=== PATIENT | female | born 1950 | race Caucasian/White ===

== ENCOUNTER → 2016-10-02 | Outpatient (REF) | payer MEDICARE, OTHER ==
[~2016-10-02] MED LIST: /WARF5TA; DIGO0.257; NICO21DI4; ZEBETA
[2016-10-02 18:53] LABS: PERCENT SATURATION 21.1 % (13.2-37.4)
== END ==
LOC: M LAB REF 16:27
PROVIDERS: ATTEND Nurse Practitioner Adult Health
DX: G25.81 Restless legs syndrome (principal); I13.0 Hypertensive heart and chronic kidney disease with heart failure and stage 1 through stage 4 chronic kidney disease, or unspecified chronic kidney disease; N18.9 Chronic kidney disease, unspecified

== ENCOUNTER → 2016-12-25 | Outpatient (REF) | payer MEDICARE, OTHER | LOC: M LAB REF 12:52 | PROVIDERS: ATTEND Nurse Practitioner Adult Health | DX: M10.9 Gout, unspecified (principal) ==

== ENCOUNTER → 2017-01-26 | Outpatient (REF) | payer MEDICARE, OTHER | LOC: M LAB REF 15:09 | PROVIDERS: ATTEND Nurse Practitioner Adult Health | DX: M10.9 Gout, unspecified (principal) ==

== ENCOUNTER → 2018-02-22 | Outpatient (CLI) | payer MEDICARE, OTHER | LOC: M WUC 14:03 | DX: I50.9 Heart failure, unspecified (principal); I51.7 Cardiomegaly; R91.8 Other nonspecific abnormal finding of lung field | CPT/HCPCS: 84100 ==

== ENCOUNTER → 2018-02-22 | Outpatient (REF) | payer MEDICARE, OTHER | LOC: M LAB REF 17:19 | DX: I50.9 Heart failure, unspecified (principal) ==

== ENCOUNTER → 2018-03-08 | Outpatient (REF) | payer MEDICARE, OTHER ==
[2018-03-08 12:55] LABS: PHOSPHORUS LEVEL 4.3 MG/DL (2.5-4.9)
== END ==
LOC: M LAB REF 12:00
DX: I50.33 Acute on chronic diastolic (congestive) heart failure (principal); I11.0 Hypertensive heart disease with heart failure; N19 Unspecified kidney failure
CPT/HCPCS: 84100

== ENCOUNTER → 2018-06-29 | Outpatient (REF) | payer MEDICARE, OTHER | LOC: M LAB REF 11:56 | PROVIDERS: ATTEND Nurse Practitioner Adult Health | DX: I50.32 Chronic diastolic (congestive) heart failure (principal); I48.3 Typical atrial flutter ==

== ENCOUNTER → 2018-09-29 | Outpatient (REF) | payer MEDICARE, OTHER ==
[~2018-09-29] MED LIST changes: -/WARF5TA; +COUM1TAB17
== END ==
LOC: M LAB REF 17:26
PROVIDERS: ATTEND Nurse Practitioner Adult Health
DX: I48.3 Typical atrial flutter (principal)

== ENCOUNTER → 2020-10-10 | Outpatient (CLI) | payer MEDICARE, OTHER ==
--- NOTE | 2020-10-10 17:02 | REP ---
INDICATION: POST MENOPAUSAL BLEEDING. COMPARISON: None. TECHNIQUE: Transabdominal and transvaginal scanning performed. FINDINGS: Uterine dimensions are 7.2 x 3.8 x 3.5 cm. Endometrial echo is 16 mm in AP dimension and centrally placed. Multiple subcentimeter cysts are seen throughout the endometrium. The bladder measures 4.6 x 7.1 cm. The ovaries could not be visualized. In the right adnexa a complex cystic structure measures 3.6 x 3.1 x 2.7 cm. No free fluid is seen in the cul-de-sac. IMPRESSION: Thickened heterogeneous endometrium with multiple subcentimeter cystic structures. This may indicate endometrial hyperplasia or neoplasm. Recommend endometrial sampling. In the right adnexa there is a complex cystic structure 3.6 cm in diameter. Recommend further evaluation with MRI of the pelvis with and without contrast. <Electronically signed by Jerry Gonzalez > 10/10/20 [id number]
== END ==
LOC: M RAD 15:48
PROVIDERS: ATTEND Nurse Practitioner Adult Health
DX: N83.201 Unspecified ovarian cyst, right side (principal); N95.0 Postmenopausal bleeding

== ENCOUNTER → 2020-11-05 | Outpatient (REF) | payer MEDICARE, OTHER ==
[~2020-11-05] MED LIST changes: +ALLO100T PO; +ALLO300T2 PO; +ATOR40TA75 PO; +BISO5TAB14 PO; +BUPR300T92 PO; +CALC1CAP31 PO; +CITA10TA7 PO; +FAMO1TAB11 PO; +GABA-1171 PO; +INCR1INH INH; +PRAD75CA5 PO; +PROAAER10 INH; +SYNT175T2 PO; +TRUL10IN PO
== END ==
LOC: M LAB REF 16:48
PROVIDERS: ATTEND Internal Medicine Nephrology
DX: N17.9 Acute kidney failure, unspecified (principal); I12.9 Hypertensive chronic kidney disease with stage 1 through stage 4 chronic kidney disease, or unspecified chronic kidney disease; M1A.30X0 Chronic gout due to renal impairment, unspecified site, without tophus (tophi)

== ENCOUNTER → 2020-11-14 | Outpatient (CLI) | payer MEDICARE, OTHER ==
[~2020-11-14] MED LIST changes: -ALLO100T PO; -ALLO300T2 PO; -ATOR40TA75 PO; -BISO5TAB14 PO; -BUPR300T92 PO; -CALC1CAP31 PO; -CITA10TA7 PO; -FAMO1TAB11 PO; -GABA-1171 PO; -INCR1INH INH; -PRAD75CA5 PO; -PROAAER10 INH; -SYNT175T2 PO; -TRUL10IN PO
--- NOTE | 2020-11-14 10:05 | REP ---
INDICATION: ABN PELVIC US, CYSTIC STRUCTURE RT ADNEXA. COMPARISON: Comparison pelvic sonography October 10, 2020. TECHNIQUE: Axial, sagittal, and coronal imaging planes utilized. T1 and T2 weighted sequences include spin echo, fast spin echo, inversion recovery, diffusion weighted scans. Images are included with and without fat saturation.. FINDINGS: Cortical and medullary bone signal intensity are normal in the visualized pelvis. There is no evidence of pelvic lymphadenopathy. No free cul-de-sac fluid is seen. The uterus measures 7.5 x 3.6 x 4.9 cm in overall dimension. The endometrium is is thickened and distended, measuring up to 2.3 cm.. This corresponds with the thickened endometrium on recent sonography and raises suspicion of endometrial neoplasia or hyperplasia. There is a subserosal fibroid in the right lateral uterus measuring 2.5 x 2.9 x 2.1 cm. No other uterine mass is seen. The left ovary is unremarkable. In the right ovary, there is a unilocular T1 hypointense, T2 hyperintense cyst. This measures 3.3 x 2.9 x 2.7 cm. It has a thin wall without nodularity. Diffusion-weighted scans show no additional finding. IMPRESSION: 1. Thickened dilated endometrium rule out hyperplasia/neoplasia. 2. Subserosal right lateral uterine leiomyoma. 3. Simple appearing right ovarian cyst measuring 3.3 cm in greatest diameter. Follow-up suggested. <Electronically signed by Anthony Rosas > 11/14/20 1001
== END ==
LOC: M RAD 07:41
PROVIDERS: ATTEND Nurse Practitioner Adult Health
DX: R93.89 Abnormal findings on diagnostic imaging of other specified body structures (principal); D25.2 Subserosal leiomyoma of uterus; N83.201 Unspecified ovarian cyst, right side

== ENCOUNTER → 2021-02-15 | Outpatient (CLI) | payer MEDICARE, OTHER ==
[~2021-02-15] MED LIST changes: +ALLO100T PO; +ALLO300T2 PO; +ATOR40TA75 PO; +BISO5TAB14 PO; +BUPR300T92 PO; +CALC1CAP31 PO; +CITA10TA5 PO; +FAMO1TAB11 PO; +GABA-1171 PO; +INCR1INH INH; +PRAD75CA5 PO; +PROAAER10 INH; +SYNT175T2 PO; +TRUL10IN PO
== END ==
LOC: M LABSMTC 11:01
PROVIDERS: ATTEND Anesthesiology
DX: Z01.818 Encounter for other preprocedural examination (principal); Z11.52 Encounter for screening for COVID-19

== ENCOUNTER 2021-02-20 13:14 | Day surgery (SDC) | payer MEDICARE, OTHER ==
[~2021-02-20] VITALS: Ht 167.6 cm; Wt 138.3 kg
[~2021-02-20 13:14] MED LIST changes: +LR 1,000 ML IV ONE
--- OUTSIDE RECORDS SUMMARY | 2021-02-20 13:17 | CCD | Continuity of Care Document ---
Author Author Avani SUE MD Organization Unknown Address [address] [place] [address] Phone [phone] Care Team Providers Care Hardwood Floor Installation Helper Name Role Phone Ashley Cruz AUTM Unavailable Problems Description No Information Available Social History Type Date Description Comments Sex Unknown Tobacco Use Start: Unknown Current Cigarette Smoker 1 Pack Daily ETOH Use Denies alcohol use Recreational Drug Use Denies Drug Use Tobacco Use Start: Unknown Patient is a current smoker, smo kes every day Smoking Status Reviewed: 01/13/21 Patient is a current smoker, smokes every day Exercise Type/Frequency Does not exercise Allergies and adverse reactions Description No Known Drug Allergies Medications Active Medications SIG Qnty Indications Ordering Provide r Date Citalopram Hydrobromide 10mg/5ML S olution 1 by mouth every day Unknown Rocaltrol 0.25mcg Capsules Da yee Unknown Famotidine 20mg Tablets 1 tab by mouth twice a day Unknown Neurontin 100mg Capsules 1 cap by mouth twice a day Unknown Atorvastatin Calcium 40mg Tablets 1 tab by mouth every day Unknown Levothyroxine Sodium 175mcg Capsul es 1 tab by mouth Daily & 1.5 Tabs MWF Unknown Zyloprim 300mg Tablets 1 tab by mouth every day Unknown Bisoprolol Fumarate 5mg Tablets 1 tab by mouth every day Unknown Wellbutrin XL 300mg Tablets ER 24H R 1 by mouth every day Unknown Allopurinol 100mg Tablets 1 tab by mouth every day Unknown Pradaxa 75mg Capsules Unknown Trulicity 0.75mg/0.5 ML Solution Pen-Inject Unknown Immunizations Description No Information Available Vital Signs Date Vital Result Comment 01/13/2021 2:23pm BP Systolic 130 mmHg BP Diastolic 90 mmHg Height 62.25 inches 5'2.25" Weight 310.00 lb BMI (Body Mass Index) 56.2 kg/m2 BSA (Body Surface Area) 2.31 m2 Results Description No Information Available Procedures Date Code Description Status 01/13/2021 62459 Office/Outpatient New Moderate M DM 45-59 Minutes Completed Medical Devices Description No Information Available Encounters Type Date Location Provider Dx Diagnosis Office Visit 01/13/2021 2:15p [facility] directory assistance operator Cynthia Sue MD N9 5.0 Postmenopausal bleeding D39.0 Neoplasm of uncertain behavi or of uterus R93.89 Abnormal findings on dx imag ing of oth body structures Assessments Date Code Description Provider 01/13/2021 N95.0 Postmenopausal bleeding Cnythia Sue MD 01/13/2021 D39.0 Neoplasm of uncertain behavior o f uterus Cynthia Sue MD 01/13/2021 R93.89 Abnormal findings on diagnostic imaging of other specified body structures Cynthia Sue MD Plan of Treatment Future Appointment(s):* 03/05/2021 11:15 am - Cynthia Sue MD at [facility] 411 directory assistance operator * 02/20/2021 9:30 am - Cynthia Sue MD at [facility] Or 01/13/2021 - Cynthia Sue MD* N95.0 Postmenopausal bleeding * 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
--- OUTSIDE RECORDS SUMMARY | 2021-02-20 13:17 | CCD | Continuity of Care Document ---
Author Author Avani Edmonds Organization Unknown Address [address] [facility] [address] [place] [address] Phone [phone] Care Team Providers Care Certified Medical Dosimetrist Name Role Phone Ashley Cruz ANP AUTM [phone] Huber Dillard DPM AUTM [phone] AUTM [phone] Huber Tomlin MD AUTM Unavailable Jay Lr DO AUTM [phone] Susan Newman MD AUTM [phone] Problems Active Problems Provider Date Pure hyperglyceridemia NELSON Edmonds Onset: 12/31/2010 Gout NELSON Edmonds Onset: 03/05/2017 Hypothyroidism NELSON Edmonds Onset: 03/05/2017 Hypertensive heart AND chronic kidney disease with con gestive heart failure NELSON Edmonds Onset: 03/05/2017 Chronic diastolic heart failure NELSON Edmonds Onset: 1 2016 Chronic kidney disease stage 3 NELSON Edmonds Onset: Heart murmur NELSON Edmonds Onset: 03/05/2017 Obstructive sleep apnea syndrome NELSON Edmonds Onset: 03/05/2017 History of atrial flutter NELSON Edmonds Onset: 017 Morbid obesity NELSON Edmonds Onset: 03/05/2017 Tobacco user NELSON Edmonds Onset: 03/05/2017 Social History Type Date Description Comments Sex Unknown Tobacco Use Start: Unknown Patient is a current cigarette smoker, smokes every day 1 pack ETOH Use Never used alcohol Tobacco Use Start: Unknown Patient is a current smoker, smo kes every day Smoke Alarms Yes Smoke Alarms Carbon Monoxide Detector: Yes Allergies and adverse reactions Description No Known Drug Allergies Medications Active Medications SIG Qnty Indications Ordering Provide r Date Trulicity 0.75mg/0.5 ML Solution Pen-Inject 0.75 mg injection weekly [facility] Synthroid 175mcg Tablets Take 1 Tablet Four Days A Week And One And One-Half Tablets On Mondays, Wednesdays And Fridays Weekly 102tabs Ashley Lee [facility] 07/22/2020 Jardiance 25mg Tablets 1 by mouth every day Unknown 01/08/2020 Magnesium Gluconate 500mg Tablets 1 by mouth daily Unknown 11/07/2019 Famotidine 20mg Tablets 1 by mouth twice a day 180tabs [facility] 01/11/2019 Pradaxa 75mg Capsules Take 1 Capsule Twice A Day 180caps [facility] 09/29/2018 Citalopram Hydrobromide 10mg Table ts Take 1 Tablet Daily 90tabs Ashley Lee [facility] 03/01/2018 Atorvastatin Calcium 40mg Tablets 1 by mouth every day 90tabs Ashley Lee [facility] 02/10/2018 [facility]lies [facility] 01/18 Allopurinol 100mg Tablets take 1 tablet daily with 300 mg to equal 400 mg daily 90tabs Ashley Angel, [facility] 12/29/2016 Bupropion Hydrochloride ER (XL) 300mg Tablets ER 24HR Take 1 Tablet Daily 90tabs Ashley Lee [facility] 12/04 Allopurinol 300mg Tablets take 1 tablet daily with 100 mg to take 400 mg daily 90tabs M10.372 Ashley Davis, [facility] 01/21/2016 Gabapentin 100mg Capsules Take 1 Capsule Twice A Day 180caps Ashley Lee [facility] 03/06/2015 Incruse Ellipta 62.5mcg/Inh Aeroso l Use 1 Inhalation Daily 2700units Valerie Martinez, [facility]HEL[facility] 08/23/2014 Proair HFA 108(90Base) mcg/Act Aer osol 2 puffs four times a day for one week then as needed for cough 1units Ashley Lee [facility] 07/31/2014 Bisoprolol Fumarate 5mg Tablets Take 1 Tablet Daily 90tabs Valerie Martinez, CHELSEA 10/27/2009 Calcitriol 0.25mcg Capsules 1 by mouth every day Unknown History Medications Duloxetine HCL 30mg Caps DR Chaudhari 1 by mouth every day 30caps Ashley Lee [facility] 10/01/2020 - Medications Administered in Office Medication SIG Qnty Indications Ordering Provider Date Covid-19 vaccine, Unspecified Inj ection Unknown 06/30/2020 Covid-19 vaccine, Unspecified Inj ection Unknown 06/02/2020 Administration Of Flu Vaccine Inj ection Ashley Lee [facility] 01/11/2019 Administration Of Flu Vaccine Inj ection ZEINAB EdmondsP 01/18/2018 Administration Of Flu Vaccine Inj ection ZEINAB EdmondsP 01/26/2017 Immunization Each Add'l Vacc/To Injection ZEINAB EdmondsP 02/12/2011 Immunizations CPT Code Status Date Vaccine Lot # U-Flu Given 02/09/2020 Influenza,Unspecified 51576 Given 01/11/2019 Influenza Vaccin e Quadrivalent Preser/Antibiotic Free Im Use [id number] 45090 Given 08/01/2018 Shingrix Zoster Vaccine (HZV), Recombinant, Subunit, Adjuvanted 12430 Given 05/21/2018 Shingrix 73043 Given 01/18/2018 Influenza Virus Vaccine, Quadrivalent (Cciiv4), Derived From 8 Given 10/13/2017 Pneumovax 23 [id number] 92100 Given 01/26/2017 Influenza Vaccin e Quadrivalent Preser/Antibiotic Free Im Use [id number] Q2037 Given 01/21/2016 Fluvirin Virus Vaccine 42042 01 81347 Given 03/06/2015 Tetanus/Diptheria(Td)Toxoids Preservative Free [id number] Q2037 Given 02/19/2015 Fluvirin Virus Vaccine 92616 01 Q2037 Given 01/30/2014 Fluvirin Virus Vaccine 80424 21 Q2037 Given 01/25/2013 Fluvirin Virus Vaccine 63671 01 Q2037 Given 02/12/2011 Fluvirin Virus Vaccine 51733 Given 02/12/2011 Zoster Vaccine 33947 Given 12/27/2009 Influenza Virus Vaccine Vital Signs Date Vital Result Comment 10/31/2020 1:24pm BP Systolic 116 mmHg BP Diastolic 72 mmHg Heart Rate 102 /min Height 65 inches 5'5" Weight 306.00 lb O2 % BldC Oximetry 97 % BMI (Body Mass Index) 50.9 kg/m2 10/01/2020 2:07pm BP Systolic 128 mmHg BP Diastolic 72 mmHg Heart Rate 84 /min Height 65 inches 5'5" Weight 312.00 lb O2 % BldC Oximetry 95 % BMI (Body Mass Index) 51.9 kg/m2 Results Test Acquired Date Facility Test Result H/L Range Note Coronavirus 2019 Nasopharygeal 02/15/2021 [facility] [address] [place] [address] [phone] Coronavirus 2019 Nasopharygeal ASSAY INFORMATIO <SEE N OTE> 1 Complete Blood Count 10/31/2020 [facility] Corporate Training Manager: [place] [address] [phone] WBC 5.5 x10*3/UL 4.1 - 10.9 RBC 4.77 x10*6/UL 4.20 - 6.30 Hemoglobin 15.1 g/dL 12.0 - 18.0 Hematocrit 44.0 % 37.0 - 51.0 MCV 92.3 fL 80.0 - 97.0 MCH 31.7 pg 26.0 - 32.0 MCHC 34.3 g/dL 31.0 - 38.0 RDW 14.7 % High 11.6 - 13.7 PLT 143 x10*3/UL 140 - 440 MPV 7.9 FL 7.8 - 11.0 Lymph % 19.6 % 10.0 - 58.5 Mid % 5.3 % 1.7 - 9.3 Neut % 75.1 % 37.0 - 92.0 Lymph # 1.0 x10*3/UL 0.6 - 4.1 Mid # 0.4 x10*3/UL 0.1 - 0.6 Neut # 4.1 x10*3/UL 2.0 - 7.8 Basic Metabolic Panel 10/31/2020 [facility] Corporate Training Manager: [place] [address] [phone] Glucose 93 mg/dL 74 - 99 2 BUN 35 mg/dL High 7 - 18 Creatinine 1.4 mg/dL High 0.6 - 1.3 Sodium 138 mEq/L 136 - 145 Potassium 4.8 mEq/L 3.5 - 5.1 Chloride 106 mEq/L 98 - 107 Carbon Dioxide 27 mEq/L 21 - 32 Calcium 9.2 mg/dL 8.5 - 10.1 GFR 37 mL/min Low >60 GFR 45 mL/min Low >60 3 Pap Ig & HPV W/Rx HPV Eugenie 16/18,45 10/01/2020 [facility] [place] [facility] See Comment: 4 Adeq See Comment: 5 [email or web address] See Comment: 6 Perfor See Comment: 7 Signed See Comment: 8 Comm . Note See Comment: 9 Iglbp See Comment: 10 HPV Aptima Negative Negative 11 Laboratory test finding 10/01/2020 [facility] [place] PDF [id number] SEE IMAGE 1 ASSAY INFORMATION: Real Time RT-PCR NOTE: The COVID-19 assay has been cleared by the U.S. Food and Drug Administration under the Emergency Use Authorization (EUA). [facility] are designated as high complexity laboratories by the Clinical Laboratory Improvement Amendments of 1988(CLIA) and are qualified to perform this test. Not Detected 2 100-125 mg/dL PRE-DIABET ES/FASTING >126 mg/dL DIABETES/FASTING 3 CHRONIC KIDNEY DISEASE STAGI NG PER NKF STAGE I & II GFR >= 60 NORMAL TO MILDLY DECREASED STAGE III GFR 30-59 MODERATELY DECREASED STAGE IV GFR 15-29 SEVERELY DECREASED STAGE V GFR <15 VERY LITTLE GFR LEFT ESRD GFR <15 ON BRAID FOLDER 4 NEGATIVE FOR INTRAEPITHELIAL LESION OR MALIGNANCY. 5 Satisfactory for evaluation. No endocervical component is identified. 6 N95.0 7 Andie Alamo [employer] ogist (ASCP) 8 France Beckford MD, Pa thologist 9 The Pap smear is a screening test designed to aid in the detection of premalignant and malignant conditions of the uterine cervix. It is not a diagnostic procedure and should not be used as the sole means of detecting cervical cancer. Both false-positive and false-negative reports do occur. 10 This liquid based ThinPrep(R ) pap test was screened with the use of an image guided system. 11 This nucleic acid amplificat ion test detects fourteen high-risk HPV types (16,18,31,33,35,39,45,51,52,56,58,59,66,68) without differentiation. Procedures Date Code Description Status 10/31/2020 92535 Office/Outpatient Established Mo d MDM 30-39 Min Completed 10/01/2020 27282 Office/Outpatient Established Mo d MDM 30-39 Min Completed 09/27/2019 [id number] Diabetic Retinal Eye Exam Comple lorna 08/17/2019 [id number] Mammogram Completed 08/10/2017 [id number] Mammogram Completed 02/04/2017 [id number] Diabetic Retinal Eye Exam Comple [facility] 12/24/2016 [id number] Diabetic Foot Exam Completed 05/25/2016 [id number] Mammogram Completed 01/22/2016 [id number] Mammogram Completed 05/23/2015 [id number] Mammogram Completed 04/19/2014 [id number] Mammogram Completed 03/21/2014 [id number] Mammogram Completed 06/28/2012 [id number] Mammogram Completed 06/18/2011 [id number] Mammogram Completed Medical Devices Description No Information Available Encounters Type Date Location Provider Dx Diagnosis Office Visit 10/31/2020 1:20p [facility] Ashley Davis, TAFFY PULLER I13.0 Hyp hrt & chr kdny dis w hrt fail and st g 1-4/unsp chr kdny I50.32 Chronic diastolic (congestiv e) heart failure N18.32 Chronic kidney disease, stag e 3b I48.0 Paroxysmal atrial fibrillati on Z79.01 halfway (current) use of a nticoagulants E11.40 Type 2 diabetes mellitus wit h diabetic neuropathy, unsp E11.65 Type 2 diabetes mellitus wit h hyperglycemia R93.5 Abn findings on dx imaging o f abd regions, inc retroperiton Office Visit 10/01/2020 2:00p [facility] 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 * 03/05/2021 1:20 pm - Nurse #2 at [facility] * 03/05/2021 1:40 pm - NELSON Edmonds at [facility] 10/31/2020 - NELSON Edmonds* I13.0 Hypertensive heart and chronic kidney disease with heart failure and stage 1 through stage 4 chronic kidney disease, or unspecified chronic kidney disease* Comments:* Blood pressure is controlled on current treatment plan. * I50.32 Chronic diastolic (congestive) heart failure* Comments:* Clinically euvolemic Clinically euvolemic * N18.32 Chronic kidney disease, stage 3b* Comments:* BMP obtained, reviewed and is stable with a GFR of 37 and a creatinine 1.4. * I48.0 Paroxysmal atrial fibrillation* Comments:* Clinically sinus rhythm. 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 CBC obtained, reviewed and is acceptable * E11.40 Type 2 diabetes mellitus with diabetic neuropathy, unspecified * E11.65 Type 2 diabetes mellitus with hyperglycemia* Comments:* Diet and exercise discussed. * R93.5 Abnormal findings on diagnostic imaging of other abdominal regions, including retroperitoneum* Comments:* Abnormal pelvic ultrasound. The recommendation was for an MRI due to the right adnexa complex cyst measuring 3.6 cm. Endometrium was thickened. I have referred her to Dr. Mendes and she has an appointment in January. Radiology recommended an MRI of her pelvis with and without contrast. In light of her renal function, will obtain it just without contrast * All * New Medication:* Trulicity 0.75 mg/0.5ML - 0.75 mg injection weekly Functional Status Description No Information Available Mental Status Description No Information Available Referrals Refer to Reason for Referral Status Appt Date Sujata Booker NP Referral DX: Growth on her face and roberth e on her back Created [facility] [place], [place] [phone] Cynthia Mendes MD CONSULT FOR POST MENOPAUSAL BLEEDING [facility] [address], [place] [address] [phone]
--- OUTSIDE RECORDS SUMMARY | 2021-02-20 13:17 | CCD | Continuity of Care Document ---
Author Author Avani PAIGE DO Organization Unknown Address [address] [facility] [address] [place] [address] Phone [phone] Care Team Providers Care Art Critic Name Role Phone Ashley Cruz ANP AUTM [phone] Huber Dillard DPM AUTM [phone] AUTM [phone] Huber Tomlin MD AUTM Unavailable Jay Lr DO AUTM [phone] Susan Newman MD AUTM [phone] Problems Active Problems Provider Date Pure hyperglyceridemia [...] Pen-Inject 0.75 mg injection weekly 2ml [facility] Synthroid 175mcg Tablets Take 1 Tablet Four Days A Week And One And One-Half Tablets On Mondays, Wednesdays And Fridays Weekly 102tabs Ashley Lee [facility] 07/22/2020 Jardiance 25mg Tablets 1 by mouth every day Unknown 01/08/2020 Magnesium Gluconate 500mg Tablets 1 by mouth daily Unknown 11/07/2019 Famotidine 20mg Tablets 1 by mouth twice a day 180tabs [facility] 01/11/2019 Pradaxa 75mg Capsules Take 1 Capsule Twice A Day 180caps [facility] 09/29/2018 Citalopram Hydrobromide 10mg Table ts Take 1 Tablet Daily 90tabs Ashley Lee [facility] 03/01/2018 Atorvastatin Calcium 40mg Tablets 1 by mouth every day 90tabs Ashley Lee [facility] 02/10/[address] [facility] [facility] 01/18 Allopurinol 100mg Tablets take 1 tablet daily with 300 mg to equal 400 mg daily 90tabs Ashley Angel, [facility] 12/29/2016 Bupropion Hydrochloride ER (XL) 300mg Tablets ER 24HR Take 1 Tablet Daily 90tabs Ashley Lee [facility] 12/04 Allopurinol 300mg Tablets take 1 tablet daily with 100 mg to take 400 mg daily 90tabs M10.372 Ashley Davis, [facility] 01/21/2016 Gabapentin 100mg Capsules Take 1 Capsule Twice A Day 180caps Ashley Lee [facility] 03/06/2015 Incruse Ellipta 62.5mcg/Inh Aeroso l Use 1 Inhalation Daily 2700units Valerie Martinez, [place] 08/23/2014 Proair HFA 108(90Base) mcg/Act Aer osol 2 puffs four times a day for one week then as needed for cough 1units Ashley Lee [facility] 07/31/2014 Bisoprolol Fumarate 5mg Tablets Take 1 Tablet Daily 90tabs Valerie Martinez, CHELSEA 10/27/2009 Calcitriol 0.25mcg Capsules 1 by mouth every day Unknown History Medications Duloxetine HCL 30mg Caps DR Chaudhari 1 by mouth every day 30caps Ashley Lee, [facility] 10/01/2020 - Medications Administered in Office Medication SIG Qnty Indications Ordering Provider Date Covid-19 vaccine, Unspecified Inj ection Unknown 06/30/2020 Covid-19 vaccine, Unspecified Inj ection Unknown 06/02/2020 Administration Of Flu Vaccine Inj ection Ashley Lee [facility] 01/11/2019 Administration Of Flu Vaccine Inj ection ZEINAB EdmondsP 01/18/2018 Administration Of Flu Vaccine Inj ection Ashley Lee [facility] 01/26/2017 Immunization Each Add'l Vacc/To Injection Ashley Lee [facility] 02/12/2011 Immunizations CPT Code Status Date Vaccine Lot # [id number] Given 02/18/2021 Influenza Virus Vaccine, Quadrivalent, Slit Virus, Im Use [id number] U-Flu Given 02/09/2020 Influenza,Unspecified 73875 Given 01/11/2019 Influenza Vaccin e Quadrivalent Preser/Antibiotic Free Im Use [id number] 36154 Given 08/01/2018 Shingrix Zoster Vaccine (HZV), Recombinant, Subunit, Adjuvanted 43631 Given 05/21/2018 Shingrix 59077 Given 01/18/2018 Influenza Virus Vaccine, Quadrivalent (Cciiv4), Derived From 3 Given 10/13/2017 Pneumovax 23 [id number] 29231 Given 01/26/2017 Influenza Vaccin e Quadrivalent Preser/Antibiotic Free Im Use [id number] Q2037 Given 01/21/2016 Fluvirin Virus Vaccine 06657 01 49866 Given 03/06/2015 Tetanus/Diptheria(Td)Toxoids Preservative Free [id number] Q2037 Given 02/19/2015 Fluvirin Virus Vaccine 65845 01 Q2037 Given 01/30/2014 Fluvirin Virus Vaccine 33350 21 Q2037 Given 01/25/2013 Fluvirin Virus Vaccine 41163 01 Q2037 Given 02/12/2011 Fluvirin Virus Vaccine 56636 Given 02/12/2011 Zoster Vaccine 69429 Given 12/27/2009 Influenza Virus Vaccine Vital Signs Date Vital Result Comment 02/18/2021 10:02am BP Systolic 126 mmHg BP Diastolic 82 mmHg Heart Rate 98 /min Height 65 inches 5'5" Weight 315.00 lb O2 % BldC Oximetry 95 % BMI (Body Mass Index) 52.4 kg/m2 10/31/2020 1:24pm BP Systolic 116 mmHg BP Diastolic 72 mmHg Heart Rate 102 /min Height 65 inches 5'5" Weight 306.00 lb O2 % BldC Oximetry 97 % BMI (Body Mass Index) 50.9 kg/m2 Results Test Acquired Date Facility Test Result H/L Range Note Complete Blood Count 02/18/2021 [facility] Duplicating Machine Mechanic: [place] [address] [phone] WBC 6.0 x10*3/UL 4.1 - 10.9 RBC 4.57 x10*6/UL 4.20 - 6.30 Hemoglobin 14.0 g/dL 12.0 - 18.0 Hematocrit 42.5 % 37.0 - 51.0 MCV 92.8 fL 80.0 - 97.0 MCH 30.7 pg 26.0 - 32.0 MCHC 33.1 g/dL 31.0 - 38.0 RDW 13.9 % High 11.6 - 13.7 PLT 166 x10*3/UL 140 - 440 MPV 7.9 FL 7.8 - 11.0 Lymph % 14.7 % 10.0 - 58.5 Mid % 4.8 % 1.7 - 9.3 Neut % 80.5 % 37.0 - 92.0 Lymph # 0.8 x10*3/UL 0.6 - 4.1 Mid # 0.4 x10*3/UL 0.1 - 0.6 Neut # 4.8 x10*3/UL 2.0 - 7.8 A1c 02/18/2021 [facility] Duplicating Machine Mechanic: [place] [address] [phone] Hba1c 5.6 % <5.7 1 Est Avg Glucose 114 mg/dL High 60 - 110 Basic Metabolic Panel 02/18/2021 [facility] Duplicating Machine Mechanic: [place] [address] [phone] Glucose 99 mg/dL 74 - 99 2 BUN 30 mg/dL High 7 - 18 Creatinine 1.3 mg/dL 0.6 - 1.3 Sodium 145 mEq/L 136 - 145 Potassium 4.5 mEq/L 3.5 - 5.1 Chloride 107 mEq/L 98 - 107 Carbon Dioxide 27 mEq/L 21 - 32 Calcium 9.3 mg/dL 8.5 - 10.1 GFR 41 mL/min Low >60 GFR 49 mL/min Low >60 3 Microalbumin/Creatinine Urine 02/18/2021 [facility] Duplicating Machine Mechanic: [place] [address] [phone] Microalbumin Urine 567.1 mg/L High 1.3 - 20.0 Urine Creatinine 372.9 mg/dL High 30.0 - 125.0 Microalb/Creat Ratio 152.1 ug/mg High 0.0 - 30.0 Coronavirus 2019 Nasopharygeal 02/15/2021 [place] [id number] [phone] Coronavirus 2019 Nasopharygeal ASSAY INFORMATIO <SEE N OTE> 4 Complete Blood Count 10/31/2020 [facility] Duplicating Machine Mechanic: [place] [address] [phone] WBC 5.5 x10*3/UL 4.1 - 10.9 RBC [...] 2.0 - 7.8 Basic Metabolic Panel 10/31/2020 [facility] Duplicating Machine Mechanic: [place] [address] [phone] Glucose 93 mg/dL 74 - 99 5 BUN 35 mg/dL High 7 - 18 Creatinine 1.4 mg/dL High 0.6 - 1.3 Sodium 138 mEq/L 136 - 145 Potassium 4.8 mEq/L 3.5 - 5.1 Chloride 106 mEq/L 98 - 107 Carbon Dioxide 27 mEq/L 21 - 32 Calcium 9.2 mg/dL 8.5 - 10.1 GFR 37 mL/min Low >60 GFR 45 mL/min Low >60 6 Pap Ig & HPV W/Rx HPV Eugenie 16/18,45 10/01/2020 [facility] [place] Diagn See Comment: 7 Adeq See Comment: 8 [email or web address] See Comment: 9 Perfor See Comment: 10 Signed See Comment: 11 Comm . Note See Comment: 12 Iglbp See Comment: 13 HPV Aptima Negative Negative 14 Laboratory test finding 10/01/2020 [facility] [place] PDF [id number] SEE IMAGE 1 Lab Result Notes: Pre-Diabetes 5.7 - 6.4 % Diabetes = or > 6.5% 2 100-125 mg/dL PRE-DIABET ES/FASTING >126 mg/dL DIABETES/FASTING 3 CHRONIC KIDNEY DISEASE STAGI NG PER NKF STAGE I & II GFR >= 60 NORMAL TO MILDLY DECREASED STAGE III GFR 30-59 MODERATELY DECREASED STAGE IV GFR 15-29 SEVERELY DECREASED STAGE V GFR <15 VERY LITTLE GFR LEFT ESRD GFR <15 ON CLINICAL LABORATORY AIDE 4 ASSAY INFORMATION: Real Time RT-PCR NOTE: The COVID-19 assay has been cleared by the U.S. Food and Drug Administration under the Emergency Use Authorization (EUA). [facility] are designated as high complexity laboratories by the Clinical Laboratory Improvement Amendments of 1988(CLIA) and are qualified to perform this test. Not Detected 5 100-125 mg/dL PRE-DIABET ES/FASTING >126 mg/dL DIABETES/FASTING 6 CHRONIC KIDNEY DISEASE STAGI NG PER NKF STAGE I & II GFR >= 60 NORMAL TO MILDLY DECREASED STAGE III GFR 30-59 MODERATELY DECREASED STAGE IV GFR 15-29 SEVERELY DECREASED STAGE V GFR <15 VERY LITTLE GFR LEFT ESRD GFR <15 ON CLINICAL LABORATORY AIDE 7 NEGATIVE FOR INTRAEPITHELIAL LESION OR MALIGNANCY. 8 Satisfactory for evaluation. No endocervical component is identified. 9 N95.0 10 Andie Alamo [employer]otechn[employer] ogist (ASCP) 11 France Beckford MD, Pa thologist 12 The Pap smear is a screening test designed to aid in the detection of premalignant and malignant conditions of the uterine cervix. It is not a diagnostic procedure and should not be used as the sole means of detecting cervical cancer. Both false-positive and false-negative reports do occur. 13 This liquid based ThinPrep(R ) pap test was screened with the use of an image guided system. 14 This nucleic acid amplificat ion test detects fourteen high-risk HPV types (16,18,31,33,35,39,45,51,52,56,58,59,66,68) without differentiation. Procedures Date Code Description Status 10/31/2020 13071 Office/Outpatient Established Mo d MDM 30-39 Min Completed 10/01/2020 69405 Office/Outpatient Established Mo d MDM 30-39 Min Completed 09/27/2019 [id number] Diabetic Retinal Eye Exam Comple lorna 08/17/2019 [id number] Mammogram Completed 08/10/2017 [id number] Mammogram Completed 02/04/2017 [id number] Diabetic Retinal Eye Exam Comple [facility] 12/24/2016 [id number] Diabetic Foot Exam Completed 05/25/2016 [id number] Mammogram Completed 01/22/2016 [id number] Mammogram Completed 05/23/2015 [id number] Mammogram Completed 04/19/2014 [id number] Mammogram Completed 03/21/2014 [id number] Mammogram Completed 06/28/2012 [id number] Mammogram Completed 06/18/2011 [id number] Mammogram Completed Medical Devices Description No Information Available Encounters Type Date Location Provider Dx Diagnosis Office Visit 10/31/2020 1:20p [facility] 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 sAhley Maya ne, [facility] N95.0 Postmenopausal bleeding Assessments Date Code Description Provider 02/18/2021 Z01.810 Encounter for preprocedural card iovascular examination Jeronimo Paige, DO 02/18/2021 N95.0 Postmenopausal bleeding Jairo Paige, DO 02/18/2021 I13.0 Hypertensive heart a nd chronic kidney disease with heart failure and stage 1 through stage 4 chronic kidney disease, or unspecified chronic kidney disease Jeronimo Paige, DO 02/18/2021 I50.32 Chronic diastolic (congestive) h eart failure Jeronimo Paige, DO 02/18/2021 N18.32 Chronic kidney disease, stage 3b Jeronimo Paige, DO 02/18/2021 I48.0 Paroxysmal atrial fibrillation C hristargenis Paige, DO 02/18/2021 E11.65 Type 2 diabetes mellitus with hy perglycemia Jeronimo Paige, DO 02/18/2021 E03.9 Hypothyroidism, unspecified Chri simona Paige, DO 02/18/2021 G47.33 Obstructive sleep apnea (adult) (pediatric) Jeronimo Paige, DO 02/18/2021 J44.9 Chronic obstructive pulmonary di sease, unspecified Jeronimo Paige, DO 10/31/2020 I13.0 Hypertensive heart a nd chronic kidney disease with heart failure and stage 1 through stage 4 chronic kidney disease, or unspecified chronic kidney disease Ashley Lee [facility] 10/31/2020 I50.32 Chronic diastolic (congestive) h eart failure Ashley Lee, [facility] 10/31/2020 N18.32 Chronic kidney disease, stage 3b Ashley Lee [facility] 10/31/2020 I48.0 Paroxysmal atrial fibrillation A roshan Lee, [facility] 10/31/2020 Z79.01 moth exterminator (current) use of antic oagulants NELSON Edmonds 10/31/2020 E11.40 Type 2 diabetes arpita itus with diabetic neuropathy, unspecified NELSON Edmonds 10/31/2020 E11.65 Type 2 diabetes mellitus with hy perglycemia NELSON Edmonds 10/31/2020 R93.5 Abnormal findings on diagnostic imaging of other abdominal regions, including retroperitoneum NELSON Edmonds 10/01/2020 N95.0 Postmenopausal bleeding NELSON Perales Plan of Treatment Future Appointment(s):* 03/05/2021 1:20 pm - Nurse #2 at [facility] * 03/05/2021 1:40 pm - NELSON Edmonds at [facility] 02/18/2021 - Jeronimo Paige DO* Z01.810 Encounter for preprocedural cardiovascular examination * N95.0 Postmenopausal bleeding * I13.0 Hypertensive heart and chronic kidney disease with heart failure and stage 1 through stage 4 chronic kidney disease, or unspecified chronic kidney disease* Comments:* Well controlled on current regimen. Based on todays blood work she should be started on ACEi/ARB for diabetic nephropathy, and this will need to be considered in follow up after surgery. * I50.32 Chronic diastolic (congestive) heart failure * N18.32 Chronic kidney disease, stage 3b * I48.0 Paroxysmal atrial fibrillation* Comments:* Rate controlled, on DOAC with periop plan of DOAC as above. * E11.65 Type 2 diabetes mellitus with hyperglycemia* Comments:* Well controlled on current regimen. * E03.9 Hypothyroidism, unspecified * G47.33 Obstructive sleep apnea (adult) (pediatric)* Comments:* She will let us know what CPAP supplies she needs. * J44.9 Chronic obstructive pulmonary disease, unspecified* Comments:* Consider repeating PFTs in the future, she is not taking inhalers consistently. Functional Status Description No Information Available Mental Status Description No Information Available Referrals Refer to Reason for Referral Status Appt Date Sujata Booker NP Referral DX: Growth on her face and roberth e on her back Created [facility] [phone] Cynthia Mendes MD CONSULT FOR POST MENOPAUSAL BLEEDING Create d [facility] [address] [place] [address] [phone]
--- OUTSIDE RECORDS SUMMARY | 2021-02-20 13:17 | CCD | Continuity of Care Document ---
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
--- OUTSIDE RECORDS SUMMARY | 2021-02-20 13:17 | CCD | Continuity of Care Document ---
Author Author Avani SUE MD Organization Unknown Address [address] [place] [address] Phone [phone] Care Team Providers Care Advertising Account Manager Name Role Phone Ashley Cruz AUTM Unavailable [...] Available Procedures Date Code Description Status 01/13/2021 91390 Office/Outpatient New Moderate M DM 45-59 Minutes Completed Medical Devices Description No Information Available Encounters Type Date Location Provider Dx Diagnosis Office Visit 01/13/2021 2:15p [facility] [employer] consultant Cynthia Sue MD N9 5.0 Postmenopausal bleeding [...] 11:15 am - Cynthia Sue MD at [facility] [employer] pl[employer] consultant * 02/20/2021 9:30 am - Cynthia Sue MD at [facility] [place] 01/13/2021 - Cynthia Sue MD* N95.0 Postmenopausal bleeding * 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
--- OUTSIDE RECORDS SUMMARY | 2021-02-20 13:17 | CCD ---
Continuity of Care Document (CCD) Created on: 02/18/2021 Joshuamynor Avani Melody External Reference #: [id number] : [id number] Sex: Female Author Author Avani PAIGE DO Organization Unknown Address [address] [facility] [address] [place] [address] Phone [phone] Care Team Providers Care Director Of Spa And Guest Experience Name Role Phone Ashley Cruz ANP AUTM [phone] Huber Dillard DPM AUTM [phone] AUTM [phone] Huber Tomlin MD AUTM Unavailable Jay Lr DO AUTM [phone] Susan Newman MD AUTM [phone] Problems Active Problems Provider Date Pure hyperglyceridemia [...] Pen-Inject 0.75 mg injection weekly 2ml [facility] Synthroid 175mcg Tablets Take 1 Tablet Four Days A Week And One And One-Half Tablets On Mondays, Wednesdays And Fridays Weekly 102tabs Ashley Lee [facility] 07/22/2020 Jardiance 25mg Tablets 1 by mouth every day Unknown 01/08/2020 Magnesium Gluconate 500mg Tablets 1 by mouth daily Unknown 11/07/2019 Famotidine 20mg Tablets 1 by mouth twice a day 180tabs [facility] 01/11/2019 Pradaxa 75mg Capsules Take 1 Capsule Twice A Day 180caps [facility] 09/29/2018 Citalopram Hydrobromide 10mg Table ts Take 1 Tablet Daily 90tabs Ashley Lee [facility] 03/01/2018 Atorvastatin Calcium 40mg Tablets 1 by mouth every day 90tabs Ashley Lee [facility] 02/10/2018 Cpap Supplies [facility] 01/18 Allopurinol 100mg Tablets take 1 tablet daily with 300 mg to equal 400 mg daily 90tabs Ashley Angel, [facility] 12/29/2016 Bupropion Hydrochloride ER (XL) 300mg Tablets ER 24HR Take 1 Tablet Daily 90tabs Ashley Lee [facility] 12/04 Allopurinol 300mg Tablets take 1 tablet daily with 100 mg to take 400 mg daily 90tabs M10.372 Ashley Davis, [facility] 01/21/2016 Gabapentin 100mg Capsules Take 1 Capsule Twice A Day 180caps Ashley Lee [facility] 03/06/2015 Incruse Ellipta 62.5mcg/Inh Aeroso l Use 1 Inhalation Daily 2700units Valerie Martinez, [facility] 08/23/2014 Proair HFA 108(90Base) mcg/Act Aer osol 2 puffs four times a day for one week then as needed for cough 1units Ashley Lee [facility] 07/31/2014 Bisoprolol Fumarate 5mg Tablets Take 1 Tablet Daily 90tabs Valerie Martinez, [facility]HELSEA 10/27/2009 Calcitriol 0.25mcg Capsules 1 by mouth every day Unknown History Medications Duloxetine HCL 30mg Caps DR Chaudhari 1 by mouth every day 30caps Ashley Lee, [facility] 10/01/2020 - Medications Administered in Office Medication SIG Qnty Indications Ordering Provider Date Covid-19 vaccine, Unspecified Inj ection Unknown 06/30/2020 Covid-19 vaccine, Unspecified Inj ection Unknown 06/02/2020 Administration Of Flu Vaccine Inj ection Ashley Lee [facility] 01/11/2019 Administration Of Flu Vaccine Inj ection ZEINAB EdmondsP 01/18/2018 Administration Of Flu Vaccine Inj ection Ashley Lee [facility] 01/26/2017 Immunization Each Add'l Vacc/To Injection Ashley Lee [facility] 02/12/2011 Immunizations CPT Code Status Date Vaccine Lot # [id number] Given 02/18/2021 Influenza Virus Vaccine, Quadrivalent, Slit Virus, Im Use [id number] U-[id number] Given 02/09/2020 Influenza,Unspecified 32478 Given 01/11/2019 Influenza Vaccin e Quadrivalent Preser/Antibiotic Free Im Use [id number] 95905 Given 08/01/2018 Shingrix Zoster Vaccine (HZV), Recombinant, Subunit, Adjuvanted 07108 Given 05/21/2018 Shingrix 56265 Given 01/18/2018 Influenza Virus Vaccine, Quadrivalent (Cciiv4), Derived From 6 Given 10/13/2017 Pneumovax 23 [id number] Given 01/26/2017 Influenza Vaccin e Quadrivalent Preser/Antibiotic Free Im Use [id number] Q2037 Given 01/21/2016 Fluvirin Virus Vaccine 11299 01 23491 Given 03/06/2015 Tetanus/Diptheria(Td)Toxoids Preservative Free [id number] Q2037 Given 02/19/2015 Fluvirin Virus Vaccine 53211 01 Q2037 Given 01/30/2014 Fluvirin Virus Vaccine 82668 21 Q2037 Given 01/25/2013 Fluvirin Virus Vaccine 53575 01 Q2037 Given 02/12/2011 Fluvirin Virus Vaccine 73945 Given 02/12/2011 Zoster Vaccine 26852 Given 12/27/2009 Influenza Virus Vaccine Vital Signs [...] Date Facility Test Result H/L Range Note Laboratory test finding 02/18/2021 [place] [facility] Grower: Dr Jay [address]ige [place], [place] [address] [phone] A1c <pending> Coronavirus 2019 Nasopharygeal 02/15/[address] [address] [phone] Coronavirus 2019 Nasopharygeal ASSAY INFORMATIO <SEE N OTE> 1 Complete Blood Count 10/31/2020 [facility]er: [place] [address] [phone] WBC 5.5 x10*3/UL 4.1 - 10.9 RBC [...] 2.0 - 7.8 Basic Metabolic Panel 10/31/2020 [facility]: Dr Jay Paige [place], [place] [id number] [phone] Glucose 93 mg/dL 74 - 99 2 [...] Laboratory test finding 10/01/2020 [facility] [place] PDF [id number] SEE IMAGE 1 ASSAY INFORMATION: Real Time RT-PCR NOTE: The COVID-19 assay has been cleared by the U.S. Food and Drug Administration under the Emergency Use Authorization (EUA). [facility] are designated as high complexity laboratories by [...] LITTLE GFR LEFT ESRD GFR <15 ON REGRINDER OPERATOR 4 NEGATIVE FOR INTRAEPITHELIAL LESION OR MALIGNANCY. [...] differentiation. Procedures Date Code Description Status 10/31/2020 26743 Office/Outpatient Established Mo d MDM 30-39 Min Completed 10/01/2020 66116 Office/Outpatient Established Mo d MDM 30-39 Min Completed 09/27/2019 276467941 Diabetic Retinal Eye Exam Comple lorna 08/17/2019 [id number] Mammogram Completed 08/10/2017 [id number] Mammogram Completed 02/04/2017 [id number] Diabetic Retinal Eye Exam Comple lorna 12/24/2016 [id number] Diabetic Foot Exam Completed 05/25/2016 [id number] Mammogram Completed 01/22/2016 [id number] Mammogram Completed 05/23/2015 [id number] Mammogram Completed 04/19/2014 [id number] Mammogram Completed 03/21/2014 [id number] Mammogram Completed 06/28/2012 [id number] Mammogram Completed 06/18/2011 [id number] Mammogram Completed Medical Devices Description No Information Available Encounters Type Date Location Provider Dx Diagnosis Office Visit 10/31/2020 1:20p [facility] Ashley Maya ne, HOURLY SIGN LANGUAGE INTERPRETER I13.0 Hyp hrt & chr kdny dis w hrt fail and st g 1-4/unsp chr kdny I50.32 Chronic diastolic (congestiv e) heart failure N18.32 Chronic kidney disease, stag e 3b I48.0 Paroxysmal atrial fibrillati on Z79.01 correction (current) use of a nticoagulants E11.40 Type 2 diabetes mellitus wit h diabetic neuropathy, unsp E11.65 Type 2 diabetes mellitus wit h hyperglycemia R93.5 Abn findings on dx imaging o f abd regions, inc retroperiton Office Visit 10/01/2020 2:00p [facility] Aslhey Maya ne, HOURLY SIGN LANGUAGE INTERPRETER N95.0 Postmenopausal bleeding Assessments Date Code Description Provider 02/18/2021 Z01.810 Encounter for preprocedural card iovascular examination Jeronimo Paige, DO 02/18/2021 N95.0 Postmenopausal bleeding Jairo Keylogg, DO 02/18/2021 I13.0 Hypertensive heart a nd chronic kidney disease with heart failure and stage 1 through stage 4 chronic kidney disease, or unspecified chronic kidney disease Jeronimo Keylogg, DO 02/18/2021 I50.32 Chronic diastolic (congestive) h eart failure Ishargenis Keylogg, DO 02/18/2021 N18.32 Chronic kidney disease, stage 3b Jeronimo Keylogg, DO 02/18/2021 I48.0 Paroxysmal atrial fibrillation C hrjcarlos Keylogg, DO 02/18/2021 E11.65 Type 2 diabetes mellitus with hy perglycemia Ishargenis Jalyn, DO 02/18/2021 E03.9 Hypothyroidism, unspecified Chri simona Jalyn, DO 02/18/2021 G47.33 Obstructive sleep apnea (adult) (pediatric) Jeronimo Paige, DO 02/18/2021 J44.9 Chronic obstructive pulmonary di sease, unspecified Jeronimo Paige, DO 10/31/2020 I13.0 Hypertensive heart a nd chronic kidney disease with heart failure and stage 1 through stage 4 chronic kidney disease, or unspecified chronic kidney disease Ashley Lee [facility] 10/31/2020 I50.32 Chronic diastolic (congestive) h eart failure Ashley Lee [facility] 10/31/2020 N18.32 Chronic kidney disease, stage 3b ZEINAB [place]sP 10/31/2020 I48.0 Paroxysmal atrial fibrillation A roshan Lee [facility] 10/31/2020 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 * 03/05/2021 1:40 pm - NELSON Edmonds at [facility] 02/18/2021 - Jeronimo Paige DO* Z01.810 Encounter for preprocedural cardiovascular examination * N95.0 Postmenopausal bleeding * I13.0 Hypertensive heart and chronic kidney disease with heart failure and stage 1 through stage 4 chronic kidney disease, or unspecified chronic kidney disease * I50.32 Chronic diastolic (congestive) heart failure * N18.32 Chronic kidney disease, stage 3b * I48.0 Paroxysmal atrial fibrillation * E11.65 Type 2 diabetes mellitus with hyperglycemia * E03.9 Hypothyroidism, unspecified * G47.33 Obstructive sleep apnea (adult) (pediatric) * J44.9 Chronic obstructive pulmonary disease, unspecified Functional Status Description No Information Available Mental Status Description No Information Available Referrals Refer to Reason for Referral Status Appt Date Sujata Booker NP Referral DX: Growth on her face and roberth e on her back Created [facility] [place], [place] [phone] Cynthia Mendes MD CONSULT FOR POST MENOPAUSAL BLEEDING Create [facility] [address] [place], [place] [address] [phone]
--- OUTSIDE RECORDS SUMMARY | 2021-02-20 13:17 | CCD | Continuity of Care Document ---
Author Author Avani SUE MD Organization Unknown Address [address] [place] [address] Phone [phone] Care Team Providers Care Burglar Alarm Mechanic Name Role Phone Ashley Cruz AUTM Unavailable [...] Available Procedures Date Code Description Status 01/13/2021 35868 Office/Outpatient New Moderate M DM 45-59 Minutes Completed Medical Devices Description No Information Available Encounters Type Date Location Provider Dx Diagnosis Office Visit 01/13/2021 2:15p [facility] store lead Cynthia Sue MD N9 5.0 Postmenopausal bleeding [...] 11:15 am - Cynthia Sue MD at [facility] store lead * 02/20/2021 9:30 am - Cynthia Sue MD at [facility] 01/13/2021 - Cynthia Sue MD* N95.0 Postmenopausal bleeding * 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
--- OUTSIDE RECORDS SUMMARY | 2021-02-20 13:18 | CCD ---
Author Author [facility] Organization [facility] Address Unknown Phone Unavailable Care Team Providers Care Finisher Brush Name Role Phone LePine, M Ashley PRESS SETUP OPERATOR Unavailable Unavailable LePine, M Ashley PRESS SETUP OPERATOR Unavailable Unavailable LePine, M Ashley PRESS SETUP OPERATOR Unavailable Unavailable LePine, M Ashley PRESS SETUP OPERATOR Unavailable Unavailable LePine, M Ashley PRESS SETUP OPERATOR Unavailable Unavailable LePine, M Ashley PRESS SETUP OPERATOR Unavailable Unavailable LePine, M Ashley PRESS SETUP OPERATOR Unavailable Unavailable LePine, M Ashley PRESS SETUP OPERATOR Unavailable Unavailable LePine, M Ashley PRESS SETUP OPERATOR Unavailable Unavailable LePine, M Ashley PRESS SETUP OPERATOR Unavailable Unavailable LePine, M Ashley PRESS SETUP OPERATOR Unavailable Unavailable LePine, M Ashley PRESS SETUP OPERATOR Unavailable Unavailable LePine, M Ashley PRESS SETUP OPERATOR Unavailable Unavailable LePine, M Ashley PRESS SETUP OPERATOR Unavailable Unavailable LePine, M Ashley PRESS SETUP OPERATOR Unavailable Unavailable LePine, M Ashley PRESS SETUP OPERATOR Unavailable Unavailable LePine, M Ashley PRESS SETUP OPERATOR Unavailable Unavailable LePine, M Ashley PRESS SETUP OPERATOR Unavailable Unavailable LePine, M Ashley PRESS SETUP OPERATOR Unavailable Unavailable LePine, M Ashley PRESS SETUP OPERATOR Unavailable Unavailable LePine, M Ashley PRESS SETUP OPERATOR Unavailable Unavailable LePine, M Ashley PRESS SETUP OPERATOR Unavailable Unavailable LePine, M Ashley PRESS SETUP OPERATOR Unavailable Unavailable LePine, M Ashley PRESS SETUP OPERATOR Unavailable Unavailable LePine, M Ashley PRESS SETUP OPERATOR Unavailable Unavailable LePine, M Ashley PRESS SETUP OPERATOR Unavailable Unavailable LePine, M Ashley PRESS SETUP OPERATOR Unavailable Unavailable LePine, M Ashley PRESS SETUP OPERATOR Unavailable Unavailable LePine, M Ashley PRESS SETUP OPERATOR Unavailable Unavailable LePine, M Ashley PRESS SETUP OPERATOR Unavailable Unavailable LePine, M Ashley PRESS SETUP OPERATOR Unavailable Unavailable LePine, M Ashley PRESS SETUP OPERATOR Unavailable Unavailable LePine, M Ashley PRESS SETUP OPERATOR Unavailable Unavailable LePine, M Ashley PRESS SETUP OPERATOR Unavailable Unavailable LePine, M Ashley PRESS SETUP OPERATOR Unavailable Unavailable LePine, M Ashley PRESS SETUP OPERATOR Unavailable Unavailable LePine, M Ashley PRESS SETUP OPERATOR Unavailable Unavailable LePine, M Ashley PRESS SETUP OPERATOR Unavailable Unavailable LePine, M Ashley PRESS SETUP OPERATOR Unavailable Unavailable LePine, M Ashley PRESS SETUP OPERATOR Unavailable Unavailable LePine, M Ashley PRESS SETUP OPERATOR Unavailable Unavailable LePine, M Ashley PRESS SETUP OPERATOR Unavailable Unavailable LePine, M Ashley PRESS SETUP OPERATOR Unavailable Unavailable LePine, M Ashley PRESS SETUP OPERATOR Unavailable Unavailable LePine, M Ashley PRESS SETUP OPERATOR Unavailable Unavailable LePine, M Ashley PRESS SETUP OPERATOR Unavailable Unavailable LePine, M Ashley PRESS SETUP OPERATOR Unavailable Unavailable LePine, M Ashley PRESS SETUP OPERATOR Unavailable Unavailable LePine, M Ashley PRESS SETUP OPERATOR Unavailable Unavailable LePine, M Ashley PRESS SETUP OPERATOR Unavailable Unavailable LePine, M Ashley PRESS SETUP OPERATOR Unavailable Unavailable LePine, M Ashley PRESS SETUP OPERATOR Unavailable Unavailable LePine, M Ashley PRESS SETUP OPERATOR Unavailable Unavailable LePine, M Ashley PRESS SETUP OPERATOR Unavailable Unavailable LePine, M Ashley PRESS SETUP OPERATOR Unavailable Unavailable LePine, M Ashley PRESS SETUP OPERATOR Unavailable Unavailable SUE, L SIN GONZALEZ Unavailable Unavailable SUE, L SIN GONZALEZ Unavailable Unavailable SUE, L SIN GONZALEZ Unavailable Unavailable SUE, Melody VOGT MD Unavailable Unavailable SUE, L SIN GONZALEZ Unavailable Unavailable SUE, L SIN GONZALEZ Unavailable Unavailable SUE, L SIN GONZALEZ Unavailable Unavailable SUE, L SIN GONZALEZ Unavailable Unavailable SUE, L SIN GONZALEZ Unavailable Unavailable SUE, L SIN GONZALEZ Unavailable Unavailable SUE, L SIN GONZALEZ Unavailable Unavailable SUE, L SIN GONZALEZ Unavailable Unavailable SUE, L SIN GONZALEZ Unavailable Unavailable SUE, L SIN GONZALEZ Unavailable Unavailable SUE, L SIN GONZALEZ Unavailable Unavailable SUE, L SIN GONZALEZ Unavailable Unavailable SUE, L SIN GONZALEZ Unavailable Unavailable SUE, L SIN GONZALEZ Unavailable Unavailable SUE, L SIN GONZALEZ Unavailable Unavailable SUE, Melody VOGT MD Unavailable Unavailable SUE, L SIN GONZALEZ Unavailable Unavailable SUE, Melody VOGT MD Unavailable Unavailable SUE, L SIN GONZALEZ Unavailable Unavailable SUE, Melody VOGT MD Unavailable Unavailable SUE, Melody VOGT MD Unavailable Unavailable SUE, Melody VOGT MD Unavailable Unavailable SUE, Melody VOGT MD Unavailable Unavailable SUE, Melody VOGT MD Unavailable Unavailable SUE, Melody VOGT MD Unavailable Unavailable SUE, Melody VOGT MD Unavailable Unavailable SUE, L SIN GONZALEZ Unavailable Unavailable SUE, Melody VOGT MD Unavailable Unavailable SUE, Melody VOGT MD Unavailable Unavailable SUE, L SIN GONZALEZ Unavailable Unavailable SUE, Melody VOGT MD Unavailable Unavailable SUE, Melody VOGT MD Unavailable Unavailable SUE, Melody VOGT MD Unavailable Unavailable SUE, L SIN GONZALEZ Unavailable Unavailable SUE, L SIN MD Unavailable Unavailable SUE, L SIN MD Unavailable Unavailable SUE, L SIN MD Unavailable Unavailable SUE, L SIN MD Unavailable Unavailable SUE, L SIN MD Unavailable Unavailable SUE, L SIN MD Unavailable Unavailable SUE, L SIN MD Unavailable Unavailable DONNA, A JEROME DO Unavailable Unavailable DONNA, A JEROME DO Unavailable Unavailable DONNA, A JEROME DO Unavailable Unavailable DONNA, A JEROME DO Unavailable Unavailable DONNA, A JEROME DO Unavailable Unavailable DONNA, A JEROME DO Unavailable Unavailable DONNA, A JEROME DO Unavailable Unavailable DONNA, A JEROME DO Unavailable Unavailable DONNA, A JEROME DO Unavailable Unavailable DONNA, A JEROME DO Unavailable Unavailable DONNA, A JEROME DO Unavailable Unavailable DONNA, A JEROME DO Unavailable Unavailable DONNA, A JEROME DO Unavailable Unavailable DONNA, A JEROME DO Unavailable Unavailable DONNA, A JEROME DO Unavailable Unavailable DONNA, A JEROME DO Unavailable Unavailable DONNA, A JEROME DO Unavailable Unavailable DONNA, A JEROME DO Unavailable Unavailable DONNA, A JEROME DO Unavailable Unavailable DONNA, A JEROME DO Unavailable Unavailable DONNA, A JEROME DO Unavailable Unavailable DONNA, A JEROME DO Unavailable Unavailable DONNA, A JEROME DO Unavailable Unavailable Re-disclosure Warning The records that you are about to access may contain information from federally-assisted alcohol or drug abuse programs. If such information is present, then the following federally mandated warning applies: This information has been disclosed to you from records protected by federal confidentiality rules (42 CFR part 2). The federal rules prohibit you from making any further disclosure of this information unless further disclosure is expressly permitted by the written consent of the person to whom it pertains or as otherwise permitted by 42 CFR part 2. A general authorization for the release of medical or other information is NOT sufficient for this purpose. The Federal rules restrict any use of the information to criminally investigate or prosecute any alcohol or drug abuse patient.The records that you are about to access may contain highly sensitive health information, the redisclosure of which is protected by Article 27-F of the [facility] Public Health law. If you continue you may have access to information: Regarding HIV / AIDS; Provided by facilities licensed or operated by the [facility] Office of Mental Health; or Provided by the [facility] Office for People With Developmental Disabilities. If such information is present, then the following [facility] mandated warning applies: This information has been disclosed to you from confidential records which are protected by state law. State law prohibits you from making any further disclosure of this information without the specific written consent of the person to whom it pertains, or as otherwise permitted by law. Any unauthorized further disclosure in violation of state law may result in a fine or skilled nursing sentence or both. A general authorization for the release of medical or other information is NOT sufficient authorization for further disc losure. Allergies and Adverse Reactions Type Description Substance Reaction Status Data Source(s ) Allergy to substance No Known Allergies No known allergies (situation ) FANTASMA ([facility]illo Montgomery 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 09/25/2020 01:01:00 PM EDT - 09/25/2020 03:07:00 PM EDT HistoplasmosisMacular Degeneration Nonex udative Right Eye Early Dry StageNicotine Dependence Cigarettes UncomplicatedEssential HypertensionPseudophakiaMacular Degeneration Nonexudative Left Eye Intermediate Dry StageDry Eye Syndrome Both EyesCorneal Dystrophy Endothelial Fuchs' FANTASMA (Castillo Montgomery MD 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 IIV4 02/18/2021 09:03:00 AM EST completed MEDENT ([facility]) COVID-19 VACCINE Moderna 07/01/2020 12:00:00 AM EDT completed [facility] Vaccine Series Complete: YESThis Data wa s Submitted to [facility] Via [email or web address]. COVID-19 VACCINE Moderna 06/03/2020 12:00:00 AM EST completed [facility] Vaccine Series Complete: NOThis Data was Submitted to [facility] Via [email or web address]. This CVX code allows reporting of a vacc ination when formulation is unknown (for example, when recording a Influenza vaccination when noted on a vaccination card) 02/09/2020 12:34:00 PM EST completed MEDEN T ([facility]) INFLUENZA VACCINE QUADRIVALENT (65 YR UP)/MF59 C.1/PF 02/09/2020 12:00:00 AM EST completed [facility] Medications Medication Brand Name Start Date Product Form Dose Route Admi nistrative Instructions Pharmacy Instructions Status Indications Reaction Description Data Source(s) 0.5 ML dulaglutide 1.5 MG/ML Auto-Injector [Trulicity] [facility] 10/31/2020 12:00:00 AM EDT active M EDENT ([facility]) duloxetine 30 MG Delayed Release Oral Capsule Duloxetine HCL 10/01/2020 12:00:00 AM EDT ORAL completed MEDENT ([facility]) Levothyroxine Sodium 0.175 MG Oral Tablet [Synthroid] Synthr oid 07/22/2020 12:00:00 AM EDT active [facility] 300 mg 07/13/2020 12:00:00 AM EDT capsule 20 TAKE ONE CAPSULE BY MOUTH EVERY 12 HOURS FOR 10 DAYS TAKE ONE CAPSULE BY MOUTH EVERY 12 HOURS FOR 10 DAYS S OLD: 07/14/2020 [facility] Covid-19 vaccine, Unspecified 06/30/2020 12:00:00 AM EDT completed [facility] Medication administered onsite 500 mg 06/21/2020 12:00:00 AM EDT capsule 22 TAKE 2 CAPSULES BY MOUTH IMMEDIATELY, THEN 1 CAPSULE THREE TIMES A DAY TAKE 2 CAPSULES BY MOUTH IMMEDIATELY, THEN 1 CAPSULE THREE TIMES A DAY SOLD: 06/21/2020 [facility] 800 mg 06/21/2020 12:00:00 AM EDT tablet 16 TAKE ONE TABLET BY MOUTH EVERY 6 TO 8 HOURS MAXIMUM DAILY DOSE = 4 TABLETS TAKE ONE TABLET BY MOUTH EVERY 6 TO 8 HOURS MAXIMUM DAILY DOSE = 4 TABLETS SOLD: 06/21/2020 [facility] Covid-19 vaccine, Unspecified 06/02/2020 12:00:00 AM EST completed [facility]) Medication administered onsite empagliflozin 25 MG Oral Tablet [Jardiance] Jardiance 01/08/2020 12:00:00 AM EDT ORAL active MED[facility] ([facility]) Insurance Providers Payer name Policy type / Coverage type Policy ID Covered republican ID Covered republican's relationship to nguyen Policy Nguyen Plan Information Medicare Natl Govt Servic Medicare Primary [id number] Self [id number] Medicare Natl Govt Servic Medicare Primary [id number] Self [id number] Medicare Natl Govt Servic Medicare Primary [id number] 2.840.1.006920.3.227.99.4595.53311.0 Self [id number] Medicare Natl Govt Servic Medicare Primary [id number] 2.840.1.326596.3.227.99.4595.01074.0 Self [id number] Medicare Natl Govt Servic Medicare Primary [id number] 2.840.1.947379.3.227.99.4595.51236.0 Self [id number] Medicare Natl Govt Servic Medicare Primary [id number] 2.840.1.932104.3.227.99.4595.94534.0 Self [id number] Medicare Natl Govt Servic Medicare Primary [id number] Self [id number] Medicare Natl Govt Servic Medicare Primary [id number] 2.840.1.168626.3.227.99.4595.15025.0 Self [id number] Medicare Natl Govt Servic Medicare Primary [id number] 2.840.1.613055.3.227.99.4595.04784.0 Self [id number] MEDICARE [id number] Mary [id number] Medicare Natl Govt Servic Medicare Primary [id number] 2.840.1.682304.3.227.99.4595.44799.0 Self [id number] Medicare Natl Govt Servic Medicare Primary [id number] 2.16.840.1.409368.3.227.99.4595.67938.0 Self [id number] Medicare Natl Govt Servic Medicare Primary [id number] 2.16.840.1.730591.3.227.99.4595.26379.0 Self [id number] Medicare Natl Govt Servic Medicare Primary 2.16.840.1.267072.3.227.99.4595.97601.0 Self Medicare Natl Govt Servic Medicare Primary [id number] Self [id number] Medicare Natl Govt Servic Medicare Primary [id number] Self [id number] Medicare Natl Govt Servic Medicare Primary [id number] 2.840.1.938714.3.227.99.4595.82146.0 Self [id number] Spo [id number] Medicare (Part B) Medicare Primary [id number] 2.840.1.068962.3.227.99.572.46138.0 Self 2 [id number] Prime - [employer] Health Maintenance Organization (HMO) [id number] 2.16840.1.004595.3.227.99.572.22761.0 Family Dependent [id number] PI PI MEDICARE PI PI For Life - [facility] Part B [id number] 2.16840.1.795160.3.227.99.572.19852.0 Family Dependent [id number] Medicare (Part B) Medicare Primary [id number] 2.16840.1.610567.3.227.99.572.76110.0 Self 2 [id number] Prime - [employer] Health Maintenance Organization (HMO) [id number] 2.16.840.1.091222.3.227.99.572.85998.0 Family Dependent [id number] For Life - WPS Medigap Part B [id number] 2.16.840.1.294711.3.227.99.572.77634.0 Family Dependent [id number] Medicare (Part B) Medicare Primary [id number] 2.16.840.1.858166.3.227.99.572.75965.0 Self 2 [id number] [facility] ([facility] [place] [id number] 2.16.840.1.456280.3.227.99.572.43658.0 Family Dependent [id number] For Life - WPS Medigap Part B [id number] 2.16.840.1.679444.3.227.99.572.73654.0 Family Dependent [id number] Medicare (Part B) Medicare Primary [id number] 2.16.840.1.423118.3.227.99.572.90649.0 Self 2 [id number] [facility] Maintenance Organization ([facility] [place] [id number] 2.16.840.1.897792.3.227.99.572.14582.0 Family Dependent [id number] For Life - WPS Medigap Part B [id number] 2.16.840.1.366174.3.227.99.572.90834.0 Family Dependent [id number] Medicare (Part B) Medicare Primary [id number] 2.16.840.1.518676.3.227.99.572.91927.0 Self 2 [id number] Prime - [employer] Health Maintenance Organization (HMO) [id number] 2.16.840.1.423223.3.227.99.572.64521.0 Family Dependent [id number] DO Not Use (Now #114) Commercial [id number] 2..840.1.412746.3.227.99.4595.97822.0 Family Dependent [id number] WPS For Life Medigap Part B [id number] 2.840.1.844625.3.227.99.4595.61562.0 Family Dependent [id number] DO Not Use (Now #114) Commercial [id number] 2.840.1.243546.3.227.99.4595.56938.0 Family Dependent [id number] WPS For Life Medigap Part B [id number] 2.840.1.654986.3.227.99.4595.03128.0 Family Dependent [id number] DO Not Use (Now #114) Commercial [id number] 2.840.1.452997.3.227.99.4595.73195.0 Family Dependent [id number] WPS For Life Medigap Part B [id number] 2.840.1.758912.3.227.99.4595.21484.0 Family Dependent [id number] MEDICARE C [id number] S [id number] A [facility] JAYNE O [id number] P [id number] [facility] Commercial [id number] 2.840.1.642865.3.227 .99.4595.46502.0 Family Dependent [id number] WPS For Life Medigap Part B [id number] 2.840.1.460931.3.227.99.4595.64371.0 Family Dependent [id number] MEDICARE - [place] MCR [id number] [employer] Commercial [id number] 2.0.1.749667.3.227 .99.4595.48494.0 Family Dependent [id number] WPS For Life Medigap Part B [id number] 2.0.1.965681.3.227.99.4595.28660.0 Family Dependent [id number] [employer] Commercial [id number] 2.0.1.376580.3.227 .99.4595.19708.0 Family Dependent [id number] WPS For Life Medigap Part B [id number] 2.0.1.534238.3.227.99.4595.24353.0 Family Dependent [id number] [employer] Commercial [id number] 2.0.1.191753.3.227 .99.4595.71489.0 Family Dependent [id number] WPS For Life Medigap Part B [id number] 2.0.1.183514.3.227.99.4595.45224.0 Family Dependent [id number] [employer] Commercial [id number] 2.0.1.594666.3.227 .99.4595.69419.0 Family Dependent [id number] WPS For Life Medigap Part B [id number] 20.1.776372.3.227.99.4595.21013.0 Family Dependent [id number] [facility] [id number] [facility] [id number] [employer] Commercial [id number] 2.0.1.557163.3.227 .99.4595.14473.0 Family Dependent [id number] WPS For Life Medigap Part B [id number] 2.0.1.148837.3.227.99.4595.23737.0 Family Dependent [id number] [employer] Commercial [id number] 2.16.840.1.679339.3.227 .99.4595.51991.0 Family Dependent [id number] WPS For Life Medigap Part B [id number] 2.16.840.1.213002.3.227.99.4595.59834.0 Family Dependent [id number] [employer] Commercial [id number] 2.16.840.1.320831.3.227 .99.4595.05264.0 Family Dependent [id number] WPS For Life Medigap Part B [id number] 2.16.840.1.824462.3.227.99.4595.15300.0 Family Dependent [id number] WPS For Life Medigap Part B 2.16.840.1.465797. 3.227.99.4595.79016.0 Family Dependent [employer] Commercial [id number] Family Dependent [employer]ALTH[employer]/ AD O [id number] S [id number] [employer]/ AD P [id number] P [id number] MEDICARE [id number] SP [id number] FOR LIFE [id number] 2 [id number] Medicare Part B [facility] [place] [facility] Other 0 [id number] Self 0 FOR LIFE O [id number] S [id number] MEDICARE C [id number] S [id number] DO Not Use (Now #114) Commercial [id number] Family Dependent [id number] WPS For Life Medigap Part B [id number] Family Dependent [id number] DO Not Use (Now #114) Commercial [id number] Family Dependent [id number] WPS For Life Medigap Part B [id number] Family Dependent [id number] DO Not Use (Now #114) Commercial [id number] Family Dependent [id number] WPS For Life Medigap Part B [id number] Family Dependent [id number] MEDICARE [id number] A DO Not Use (Now #114) Commercial [id number] 2.0.1.992555.3.227.99.4595.47579.0 Family Dependent [id number] WPS For Life Medigap Part B [id number] 2.0.1.283615.3.227.99.4595.24324.0 Family Dependent [id number] For Life - WPS Medigap Part B [id number] 2.0.1.823782.3.227.99.572.83848.0 Family Dependent [id number] Medicare (Part B) Medicare Primary [id number] 2.0.1.750649.3.227.99.572.23882.0 Self 2 [id number] Prime - [employer] Health Maintenance Organization (HMO) [id number] 2.0.1.903484.3.227.99.572.78902.0 Family Dependent [id number] For Life - WPS Medigap Part B [id number] 2.0.1.177057.3.227.99.572.64114.0 Family Dependent [id number] Problems, Conditions, and Diagnoses Code Display Name Description Problem Type Effective Dates Data Source(s) 64820354 Histoplasmosis (disorder) Histoplasmosis Problem 09/25/2020 12:00:00 AM EDT FANTASMA ([facility]) Surgeries/Procedures Procedure Description Date Indications Data Source(s) OFFICE OUTPATIENT NEW 45 MINUTES 01/13/2021 12:00:00 A M EDT MEDENT (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) OFFICE OUTPATIENT VISIT 25 MINUTES 10/31/2020 12:00:00 AM EDT MEDENT ([facility]) OFFICE OUTPATIENT VISIT 25 MINUTES 10/01/2020 12:00:00 AM EDT MEDENT ([facility]) Surgical / procedural history Mar k Removed 1955, Gall Bladder Removal 1989, Breast Biopsy 2014 Surgical / procedural history Mar k Removed 1955, Gall Bladder Removal 1989, Breast Biopsy 201409/25/2020 12:00:00 AM EDT FANTASMA ([facility]) COMPUTERIZED OPHTHALMIC IMAGING RETINA Scodi Retina, w ith interpretation and report ([place]) 09/25/2020 12:00:00 AM EDT FANTASMA (Asif [facility]) Comprehensive eye exam established patient (25) Compre hensive eye exam established patient (25) 09/25/2020 12:00:00 AM EDT FANTASMA ([facility]) OFFICE OUTPATIENT VISIT 15 MINUTES 07/30/2020 12:00:00 AM EDT MEDENT ([facility]) Results ID Date Data Source [id number] 02/18/2021 10:41:00 AM EST MEDENT ([facility]) Name Value Range Interpretation Code Description Data Magdalena rce(s) Supporting Document(s) Microalbumin Urine 567.1 mg/L 1.3-20.0 MEDENT ([facility]) Urine Creatinine 372.9 mg/dL 30.0-125.0 MEDENT ([facility]) Microalb/Creat Ratio 152.1 ug/mg 0.0-30.0 MEDENT ([facility]) ID Date Data Source [id number] 02/18/2021 10:41:00 AM EST MEDENT ([facility]) Name Value Range Interpretation Code Description Data Magdalena rce(s) Supporting Document(s) Urea nitrogen [Mass/volume] in Serum or Plasma 30 mg/dL 7-18 [facility] ([facility]) Creatinine 1.3 mg/dL 0.6-1.3 [facility] ([facility]) Glucose [Mass/volume] in Serum or Plasma 99 mg/dL 74-99 [facility] ([facility]) 100-125 mg/dL PRE-DIABETES/FASTING >126 mg/dL DIABETES/FASTING Sodium [Moles/volume] in Serum or Plasma 145 meq/L 136-145 [facility] ([facility]) Carbon dioxide, total [Moles/volume] in Serum or Plasma 27 meq/L 21 -32 [facility] ([facility]) Chloride [Moles/volume] in Serum or Plasma 107 meq/L 98-107 [facility] ([facility]) Potassium [Moles/volume] in Serum or Plasma 4.5 meq/L 3.5-5.1 [facility] ([facility]) Calcium [Mass/volume] in Serum or Plasma 9.3 mg/dL 8.5-10.1 [facility] ([facility]) Glomerular filtration rate/1.73 sq M pre dicted among non-blacks [Volume Rate/Area] in Serum or Plasma by Creatinine-based formula (MDRD) 41 mL/min [facility] Glomerular filtration rate/1.73 sq M pre dicted among blacks [Volume Rate/Area] in Serum or Plasma by Creatinine-based formula (MDRD) 49 mL/min [facility] <content>CHRONIC KIDNEY DISEASE STAGING PER NKF</content>
<content></content>
<content>STAGE I & II GFR >= 60 NORMAL TO MILDLY DECREASED</content>
<content>STAGE III GFR 30-59 MODERATELY DECREASED</content>
<content>STAGE IV GFR 15-29 SEVERELY DECREASED</content>
<content>STAGE V GFR <15 VERY LITTLE GFR LEFT</content>
<content>ESRD GFR <15 ON CLAIM CLERK</content>
<content></content> ID Date Data Source [id number] 02/18/2021 10:41:00 AM EST [facility] ([facility]) Name Value Range Interpretation Code Description Data Magdalena rce(s) Supporting Document(s) Hemoglobin A1c/Hemoglobin.total in Blood 5.6 % [facility] Lab Result Notes: Pre-Diabetes 5.7 - 6.4 % Diabetes = or > 6.5% Glucose mean value [Mass/volume] in Blood Estimated fr om glycated hemoglobin 114 mg/dL 60-110 [facility] ID Date Data Source [id number] 02/18/2021 10:41:00 AM EST [facility] Name Value Range Interpretation Code Description Data Magdalena rce(s) Supporting Document(s) Leukocytes [#/volume] in Blood by Automated count 6.0 x10*3/UL 4.1-10 .9 [facility] Erythrocytes [#/volume] in Blood by Automated count 4.57 x10*6/UL 4.2 0-6.30 [facility] Hematocrit [Volume Fraction] of Blood by Automated count 42.5 % 3 7.0-51.0 [facility] Hemoglobin [Mass/volume] in Blood 14.0 g/dL 12.0-18.0 [facility] ([facility]) MCH 30.7 pg 26.0-32.0 [facility] ([facility]) MCV 92.8 fL 80.0-97.0 [facility]) MCHC 33.1 g/dL 31.0-38.0 [facility] ([facility]) Platelets [#/volume] in Blood by Automated count 166 x10*3/UL 140-440 [facility] Erythrocyte distribution width [Ratio] by Automated count 13.9 % 11.6-13.7 [facility] ([facility]) MPV 7.9 FL 7.8-11.0 [facility]) Lymph % 14.7 % 10.0-58.5 [facility] Neut % 80.5 % 37.0-92.0 [facility]) Mid % 4.8 % 1.7-9.3 [facility] Mid # 0.4 x10*3/UL 0.1-0.6 [facility] ([facility]) Lymph # 0.8 x10*3/UL 0.6-4.1 [facility] ([facility]) Neut # 4.8 x10*3/UL 2.0-7.8 [facility] ([facility]) ID Date Data Source [id number] 02/18/2021 10:41:00 AM EST [facility] ([facility]) Name Value Range Interpretation Code Description Data Magdalena rce(s) Supporting Document(s) Hemoglobin A1c/Hemoglobin.total in Blood Laboratory test result [facility] ([facility]) ID Date Data Source [id number] 02/15/2021 11:05:00 AM EST [facility] ([facility]) Name Value Range Interpretation Code Description Data Magdalena rce(s) Supporting Document(s) Coronavirus 2019 Nasopharygeal Laboratory test result [facility] ([facility]) ASSAY INFORMATION: Real Time RT-PCR NOTE: The COVID-19 assay has been cleared by the U.S. Food and Drug Administration under the Emergency Use Authorization (EUA). [facility] and [facility] are designated as high complexity laboratories by the Clinical Laboratory Improvement Amendments of 1988(CLIA) and are qualified to perform this test. Not Detected ID Date Data Source [id number] 10/31/2020 02:01:00 PM EDT [facility] ([facility]) Name Value Range Interpretation Code Description Data Magdalena rce(s) Supporting Document(s) Glucose [Mass/volume] in Serum or Plasma 93 mg/dL 74-99 [facility] ([facility]) 100-125 mg/dL PRE-DIABETES/FASTING >126 mg/dL DIABETES/FASTING Urea nitrogen [Mass/volume] in Serum or Plasma 35 mg/dL 7-18 [facility] ([facility]) Sodium [Moles/volume] in Serum or Plasma 138 meq/L 136-145 [facility] ([facility]) Creatinine 1.4 mg/dL 0.6-1.3 [facility] ([facility]) Chloride [Moles/volume] in Serum or Plasma 106 meq/L 98-107 [facility] ([facility]) Potassium [Moles/volume] in Serum or Plasma 4.8 meq/L 3.5-5.1 [facility] ([facility]) Carbon dioxide, total [Moles/volume] in Serum or Plasma 27 meq/L 21 -32 [facility] ([facility]) Calcium [Mass/volume] in Serum or Plasma 9.2 mg/dL 8.5-10.1 [facility] ([facility]) Glomerular filtration rate/1.73 sq M pre dicted among non-blacks [Volume Rate/Area] in Serum or Plasma by Creatinine-based formula (MDRD) 37 mL/min [facility] Glomerular filtration rate/1.73 sq M pre dicted among blacks [Volume Rate/Area] in Serum or Plasma by Creatinine-based formula (MDRD) 45 mL/min [facility] <content>CHRONIC KIDNEY DISEASE STAGING PER NKF</content>
<content></content>
<content>STAGE I & II GFR >= 60 NORMAL TO MILDLY DECREASED</content>
<content>STAGE III GFR 30-59 MODERATELY DECREASED</content>
<content>STAGE IV GFR 15-29 SEVERELY DECREASED</content>
<content>STAGE V GFR <15 VERY LITTLE GFR LEFT</content>
<content>ESRD GFR <15 ON CLAIM CLERK</content>
<content></content> ID Date Data Source [id number] 10/31/2020 02:01:00 PM EDT [facility] ([facility]) Name Value Range Interpretation Code Description Data Magdalena rce(s) Supporting Document(s) Leukocytes [#/volume] in Blood by Automated count 5.5 x10*3/UL 4.1-10 .9 [facility] ([facility]) Erythrocytes [#/volume] in Blood by Automated count 4.77 x10*6/UL 4.2 0-6.30 [facility] ([facility]) Hemoglobin [Mass/volume] in Blood 15.1 g/dL 12.0-18.0 [facility] ([facility]) Hematocrit [Volume Fraction] of Blood by Automated count 44.0 % 3 7.0-51.0 [facility] ([facility]) MCH 31.7 pg 26.0-32.0 [facility]) MCV 92.3 fL 80.0-97.0 [facility]) MCHC 34.3 g/dL 31.0-38.0 [facility] ([facility]) Platelets [#/volume] in Blood by Automated count 143 x10*3/UL 140-440 [facility] Erythrocyte distribution width [Ratio] by Automated count 14.7 % 11.6-13.7 [facility] ([facility]) MPV 7.9 FL 7.8-11.0 [facility]) Lymph % 19.6 % 10.0-58.5 [facility]) Mid % 5.3 % 1.7-9.3 [facility]) Neut % 75.1 % 37.0-92.0 [facility] ([facility]) Lymph # 1.0 x10*3/UL 0.6-4.1 [facility] ([facility]) Mid # 0.4 x10*3/UL 0.1-0.6 [facility] ([facility]) Neut # 4.1 x10*3/UL 2.0-7.8 [facility] ([facility]) ID Date Data Source [id number] 10/01/2020 02:13:00 PM EDT [facility] Name Value Range Interpretation Code Description Data Magdalena rce(s) Supporting Document(s) Laboratory test finding (navigational concept) Laboratory test result [facility] ([facility]) ID Date Data Source [id number] 10/01/2020 02:13:00 PM EDT [facility] ([facility]) Name Value Range Interpretation Code Description Data Magdalena rce(s) Supporting Document(s) Statement of adequacy [Interpretation] o f Cervical or vaginal smear or scraping by Cyto stain Laboratory [facility] Satisfactory for evaluation. No endocer vical component is identified. Pathology report final diagnosis Narrative Laboratory test [facility]) NEGATIVE FOR INTRAEPITHELIAL LESION OR M ALIGNANCY. Cicd10 Laboratory test [facility]) N95.0 Pathologist who read Cyto stain of Cervical or vaginal smear or scraping Laboratory test result [facility]) France Beckford MD, Pathologist Sales Superintendent who read Cyto stain of Cervical or vaginal smear or scraping Laboratory test result [facility] Andie Alamo Tax Staff Accountant (ASCP) Microscopic observation [Identifier] in Unspecified sp ecimen by Other stain Laboratory test result [facility] ([facility]) Note Laboratory test result [facility] ([facility]) The Pap smear is a screening test design ed to aid in the detection of premalignant and malignant conditions of the uterine cervix. It is not a diagnostic procedure and should not be used as the sole means of detecting cervical cancer. Both false-positive and false-negative reports do occur. Cytology report of Cervical or vaginal smear or scrapi ng Cyto stain.thin prep Laboratory test result [facility] This liquid based ThinPrep(R) pap test w as screened with the use of an image guided system. Human papilloma virus 16+18+31+33+35+39+ 45+51+52+56+58+59+66+68 DNA [Presence] in Cervix by Probe and signal amplification method Laboratory test result [facility] This nucleic acid amplification test det ects fourteen high-risk HPV types (16,18,31,33,35,39,45,51,52,56,58,59,66,68) without differentiation. ID Date Data Source [id number] 07/30/2020 01:50:00 PM EDT [facility]) Name Value Range Interpretation Code Description Data Magdalena rce(s) Supporting Document(s) Urea nitrogen [Mass/volume] in Serum or Plasma 38 mg/dL 7-18 [facility] ([facility]) NOTE: BUN,CREAT VERIFIED Glucose [Mass/volume] in Serum or Plasma 99 mg/dL 74-99 [facility] ([facility]) 100-125 mg/dL PRE-DIABETES/FASTING >126 mg/dL DIABETES/FASTING Potassium [Moles/volume] in Serum or Plasma 4.6 meq/L 3.5-5.1 [facility] ([facility]) Creatinine 1.7 mg/dL 0.6-1.3 [facility]) Sodium [Moles/volume] in Serum or Plasma 141 meq/L 136-145 [facility] ([facility]) Carbon dioxide, total [Moles/volume] in Serum or Plasma 29 meq/L 21 -32 [facility] ([facility]) Chloride [Moles/volume] in Serum or Plasma 105 meq/L 98-107 [facility] ([facility]) Glomerular filtration rate/1.73 sq M pre dicted among non-blacks [Volume Rate/Area] in Serum or Plasma by Creatinine-based formula (MDRD) 30 mL/min [facility] ([facility]) Calcium [Mass/volume] in Serum or Plasma 8.7 mg/dL 8.5-10.1 [facility] ([facility]) Glomerular filtration rate/1.73 sq M pre dicted among blacks [Volume Rate/Area] in Serum or Plasma by Creatinine-based formula (MDRD) 36 mL/min [facility] ([facility]) <content>CHRONIC KIDNEY DISEASE STAGING PER NKF</content>
<content></content>
<content>STAGE I & II GFR >= 60 NORMAL TO MILDLY DECREASED</content>
<content>STAGE III GFR 30-59 MODERATELY DECREASED</content>
<content>STAGE IV GFR 15-29 SEVERELY DECREASED</content>
<content>STAGE V GFR <15 VERY LITTLE GFR LEFT</content>
<content>ESRD GFR <15 ON CLAIM CLERK</content>
<content></content> ID Date Data Source [id number] 07/30/2020 01:50:00 PM EDT [facility] Name Value Range Interpretation Code Description Data Magdalena rce(s) Supporting Document(s) Hemoglobin A1c/Hemoglobin.total in Blood 5.8 % [facility] Lab Result Notes: Pre-Diabetes 5.7 - 6.4 % Diabetes = or > 6.5% Glucose mean value [Mass/volume] in Blood Estimated fr om glycated hemoglobin 120 mg/dL 60-110 [facility] ID Date Data Source [id number] 07/30/2020 01:50:00 PM EDT [facility] Name Value Range Interpretation Code Description Data Magdalena rce(s) Supporting Document(s) Leukocytes [#/volume] in Blood by Automated count 6.1 x10*3/UL 4.1-10 .9 [facility] Erythrocytes [#/volume] in Blood by Automated count 4.99 x10*6/UL 4.2 0-6.30 [facility] Hematocrit [Volume Fraction] of Blood by Automated count 44.8 % 3 7.0-51.0 [facility] Hemoglobin [Mass/volume] in Blood 15.1 g/dL 12.0-18.0 [facility] ([facility]) MCV 89.8 fL 80.0-97.0 [facility]) MCHC 33.8 g/dL 31.0-38.0 [facility] ([facility]) MCH 30.4 pg 26.0-32.0 [facility] ([facility]) Erythrocyte distribution width [Ratio] by Automated count 14.0 % 11.6-13.7 [facility] Platelets [#/volume] in Blood by Automated count 162 x10*3/UL 140-440 [facility] ([facility]) MPV 7.7 FL 7.8-11.0 [facility]) Lymph % 22.2 % 10.0-58.5 [facility] ([facility]) Mid % 5.2 % 1.7-9.3 [facility] Neut % 72.6 % 37.0-92.0 [facility] Lymph # 1.3 x10*3/UL 0.6-4.1 [facility] ([facility]) Mid # 0.4 x10*3/UL 0.1-0.6 [facility] ([facility]) Neut # 4.4 x10*3/UL 2.0-7.8 [facility] ([facility]) ID Date Data Source [id number] 03/27/2020 02:27:00 PM EST [facility] ([facility]) Name Value Range Interpretation Code Description Data Magdalena rce(s) Supporting Document(s) Thyrotropin [Units/volume] in Serum or Plasma by Detec tion limit <= 0.05 mIU/L 1.31 uIU/mL 0.36-3.74 [facility] ([facility] ) ID Date Data Source [id number] 03/27/2020 02:27:00 PM EST [facility] ([facility]) Name Value Range Interpretation Code Description Data Magdalena rce(s) Supporting Document(s) Cholesterol [Mass/volume] in Serum or Plasma 110 mg/dL 131-200 [facility] ([facility]) Cholesterol in HDL [Mass/volume] in Serum or Plasma 36 mg/dL 35-60 [facility] ([facility]) Triglyceride [Mass/volume] in Serum or Plasma 229 mg/dL 30-150 [facility] ([facility]) Cholesterol in LDL [Mass/volume] in Serum or Plasma by calcu lation 28 CALC 50-159 [facility] ([facility]) ID Date Data Source [id number] 03/27/2020 02:27:00 PM EST [facility] ([facility]) Name Value Range Interpretation Code Description Data Magdalena rce(s) Supporting Document(s) Glucose [Mass/volume] in Serum or Plasma 88 mg/dL 74-99 [facility] ([facility]) 100-125 mg/dL PRE-DIABETES/FASTING >126 mg/dL DIABETES/FASTING Urea nitrogen [Mass/volume] in Serum or Plasma 30 mg/dL 7-18 [facility] ([facility]) Sodium [Moles/volume] in Serum or Plasma 138 meq/L 136-145 [facility] ([facility]) Creatinine 1.5 mg/dL 0.6-1.3 [facility] ([facility]) Potassium [Moles/volume] in Serum or Plasma 4.6 meq/L 3.5-5.1 [facility] ([facility]) Carbon dioxide, total [Moles/volume] in Serum or Plasma 28 meq/L 21 -32 [facility] ([facility]) Chloride [Moles/volume] in Serum or Plasma 104 meq/L 98-107 [facility] ([facility]) Calcium [Mass/volume] in Serum or Plasma 8.5 mg/dL 8.5-10.1 [facility] ([facility]) Glomerular filtration rate/1.73 sq M pre dicted among non-blacks [Volume Rate/Area] in Serum or Plasma by Creatinine-based formula (MDRD) 35 mL/min [facility] ([facility]) Glomerular filtration rate/1.73 sq M pre dicted among blacks [Volume Rate/Area] in Serum or Plasma by Creatinine-based formula (MDRD) 42 mL/min [facility] ([facility]) <content>CHRONIC KIDNEY DISEASE STAGING PER NKF</content>
<content></content>
<content>STAGE I & II GFR >= 60 NORMAL TO MILDLY DECREASED</content>
<content>STAGE III GFR 30-59 MODERATELY DECREASED</content>
<content>STAGE IV GFR 15-29 SEVERELY DECREASED</content>
<content>STAGE V GFR <15 VERY LITTLE GFR LEFT</content>
<content>ESRD GFR <15 ON CLAIM CLERK</content>
<content></content> ID Date Data Source [id number] 03/27/2020 02:27:00 PM EST [facility] ([facility]) Name Value Range Interpretation Code Description Data Magdalena rce(s) Supporting Document(s) Magnesium 1.6 mg/dL 1.8-2.4 [facility]) ID Date Data Source [id number] 03/27/2020 02:27:00 PM EST [facility] ([facility]) Name Value Range Interpretation Code Description Data Magdalena rce(s) Supporting Document(s) Hemoglobin A1c/Hemoglobin.total in Blood 5.5 % [facility] Lab Result Notes: Pre-Diabetes 5.7 - 6.4 % Diabetes = or > 6.5% Glucose mean value [Mass/volume] in Blood Estimated fr om glycated hemoglobin 111 mg/dL 60-110 [facility] ID Date Data Source [id number] 03/27/2020 02:27:00 PM EST [facility] Name Value Range Interpretation Code Description Data Magdalena rce(s) Supporting Document(s) Erythrocytes [#/volume] in Blood by Automated count 4.60 x10*6/UL 4.2 0-6.30 [facility] Hemoglobin [Mass/volume] in Blood 14.2 g/dL 12.0-18.0 [facility] Leukocytes [#/volume] in Blood by Automated count 6.1 x10*3/UL 4.1-10 .9 [facility] MCH 30.9 pg 26.0-32.0 [facility] ([facility]) Hematocrit [Volume Fraction] of Blood by Automated count 41.8 % 3 7.0-51.0 [facility] MCV 90.7 fL 80.0-97.0 [facility] ([facility]) Erythrocyte distribution width [Ratio] by Automated count 13.5 % 11.6-13.7 [facility] Platelets [#/volume] in Blood by Automated count 155 x10*3/UL 140-440 [facility] MCHC 34.1 g/dL 31.0-38.0 [facility] ([facility]) MPV 8.2 FL 7.8-11.0 [facility] ([facility]) Lymph % 20.9 % 10.0-58.5 [facility] ([facility]) Mid % 5.0 % 1.7-9.3 [facility] Neut % 74.1 % 37.0-92.0 [facility]) Lymph # 1.2 x10*3/UL 0.6-4.1 [facility] ([facility]) Mid # 0.4 x10*3/UL 0.1-0.6 [facility] ([facility]) Neut # 4.5 x10*3/UL 2.0-7.8 [facility] ([facility]) ID Date Data Source [id number] 03/27/2020 02:27:00 PM EST [facility] Name Value Range Interpretation Code Description Data Magdalena rce(s) Supporting Document(s) Hemoglobin A1c/Hemoglobin.total in Blood Laboratory test result [facility] ([facility]) Magnesium, Serum Laboratory test result [facility] ([facility]) Procedure Social History Code Duration Value Status Description Data Source(s ) Smoking 09/25/2020 03:13:31 PM T Smokes tobacco daily (findi ng) completed Smokes tobacco daily (finding) GABBS ([place] MD [facility]) Vital Signs ID Date Data Source [id number] Name Value Range Interpretation Code Description Data Source(s) Systolic blood pressure 126 mm[Hg] 126 mm[Hg] [facility] ([facility]) Diastolic blood pressure 82 mm[Hg] 82 mm[Hg] [facility] ([facility]) Heart rate 98 /min 98 /min [facility] ([facility]) Body height 65 [in_i] 65 [in_i] [facility] ([facility]) 5'5" Body weight 315.00 [lb_av] 315.00 [lb_av] [facility] ([facility]) Oxygen saturation in Arterial blood by Pulse oximetry 95 % 95 % [facility] ([facility]) Body mass index (BMI) [Ratio] 52.4 kg/m2 52.4 k g/m2 [facility] ([facility]) Body weight 310.00 [lb_av] 310.00 [lb_av] [facility] (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) Systolic blood pressure 130 mm[Hg] 130 mm[Hg] [facility] (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) Diastolic blood pressure 90 mm[Hg] 90 mm[Hg] [facility] ([facility]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) Body height 62.25 [in_i] 62.25 [in_i] [facility] ([facility]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) 5'2.25" Body mass index (BMI) [Ratio] 56.2 kg/m2 56.2 k g/m2 [facility] ([facility]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) Body surface area Derived from formula 2.31 m2 2.31 m2 [facility] ([facility]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) Heart rate 102 /min 102 /min [facility] ([facility]) Systolic blood pressure 116 mm[Hg] 116 mm[Hg] [facility] ([facility]) Diastolic blood pressure 72 mm[Hg] 72 mm[Hg] [facility] ([facility]) Body weight 306.00 [lb_av] 306.00 [lb_av] [facility] ([facility]) Oxygen saturation in Arterial blood by Pulse oximetry 97 % 97 % [facility] ([facility]) Body mass index (BMI) [Ratio] 50.9 kg/m2 50.9 k g/m2 [facility] ([facility]) Body height 65 [in_i] 65 [in_i] [facility] ([facility]) 5'5" Systolic blood pressure 128 mm[Hg] 128 mm[Hg] [facility] Diastolic blood pressure 72 mm[Hg] 72 mm[Hg] [facility] ([facility]) Heart rate 84 /min 84 /min [facility] ([facility]) Body height 65 [in_i] 65 [in_i] [facility] ([facility]) 5'5" Body weight 312.00 [lb_av] 312.00 [lb_av] [facility] ([facility]) Oxygen saturation in Arterial blood by Pulse oximetry 95 % 95 % [facility] Body mass index (BMI) [Ratio] 51.9 kg/m2 51.9 k g/m2 [facility] ([facility]) Systolic blood pressure 130 mm[Hg] 130 mm[Hg] [facility] Diastolic blood pressure 88 mm[Hg] 88 mm[Hg] [facility] ([facility]) Heart rate 98 /min 98 /min [facility] Body height 65 [in_i] 65 [in_i] [facility] 5'5" Body weight 314.00 [lb_av] 314.00 [lb_av] [facility] ([facility]) Oxygen saturation in Arterial blood by Pulse oximetry 96 % 96 % [facility] ([facility]) Body mass index (BMI) [Ratio] 52.2 kg/m2 52.2 k g/m2 [facility] Systolic blood pressure 130 mm[Hg] 130 mm[Hg] [facility] [facility] ([facility]) Body mass index (BMI) [Ratio] 51.9 kg/m2 51.9 k g/m2 [facility] ([facility]) Diastolic blood pressure 80 mm[Hg] 80 mm[Hg] [facility] ([facility]) Heart rate 59 /min 59 /min [facility] ([facility]) Body height 65 [in_i] 65 [in_i] [facility] 5'5" Body weight 312.00 [lb_av] 312.00 [lb_av] [facility] ([facility]) Oxygen saturation in Arterial blood by Pulse oximetry 98 % 98 % [facility] ([facility]) [facility]
[2021-02-20 14:46] VITALS: BP 130/92
[2021-02-20] MEDS ORDERED: bisoproloL fumarate 5 MG TAB PO ONE (15:00)
[2021-02-20] MEDS ORDERED: propofoL 200 MG/20 ML VIAL As Ordered ONE ×2 (15:27→16:35)
[2021-02-20] MEDS ORDERED: LIDOCAINE 2% 100MG/5ML SDV (FOR ANES.) As Ordered ONE (15:27)
[2021-02-20] MEDS ORDERED: fentaNYL 100 MCG/2 ML INJECTION (J3010) As Ordered ONE (15:28)
[2021-02-20] MEDS ORDERED: MIDAZOLAM INJ 2MG/2ML VIAL (J2250 PER 1MG) As Ordered ONE (15:28)
[2021-02-20] MEDS ORDERED: LIDOCAINE 1% MDV 20ML VIAL As Ordered ONE (15:43)
[2021-02-20] MEDS ORDERED: ACETAMINOPHEN 1000MG 100ML IV BTL (OFIRMEV) (J0131 PER 10MG) As Ordered ONE (16:35)
[2021-02-20] MEDS ORDERED: LR 1,000 ML IV SCH (21:45)
[2021-02-20 22:00] VITALS: BP 157/78
[2021-02-20] MEDS ORDERED: IBUPROFEN 600MG TAB PO PRN (22:10)
[2021-02-21 06:00] VITALS: BP 144/96
--- NOTE | 2021-02-21 13:06 | RO ---
OPERATIVE NOTE DATE OF OPERATION: 02/20/2021 PREOPERATIVE DIAGNOSIS/INDICATION FOR SURGERY: Postmenopausal bleeding, abnormal ultrasound. POSTOPERATIVE DIAGNOSIS: Postmenopausal bleeding, abnormal ultrasound with addition diagnosis of some vascular polyps with a question of hyperplasia. PROCEDURE: Dilation and curettage, hysteroscope and MyoSure and paracervical block. SURGEON: Cynthia Mendes MD CROP ADJUSTER: None. ANESTHESIA: MAC and local. DESCRIPTION OF PROCEDURE AND FINDINGS: Avani was brought to the operating room where sufficient sedation was given. She was prepped and draped in position in the usual sterile fashion because she was not given full anesthesia. The bladder was not emptied. The cervix was grasped with a single-tooth tenaculum. The patient does have some prolapsed especially under relaxation, but the cervix was well supported and was grasped with single tooth tenaculum so that we could get to the location for paracervical block, 20 mL of 1% lidocaine was placed at 3, 5, 8 and 10 at the cervix respectively and a full minute was given for the block to set up. The cervix was then dilated in order to allow the hysteroscope to be placed and the MyoSure REACH resector was used to remove multiple polyps that were found in the cavity as noted in the photograph they are vascular actually, so somewhat concerning, it looked at least like hyperplasia, but of course the pathology will show the real answer to that and the tissue was all sent to pathologist and curettage was carried out after the polyps were removed by MyoSure and the majority of the endometrium as well. There are no cervical lesions and the procedure was ended after the curettage with the sample sent to the pathologist and there were no complications. ESTIMATED BLOOD LOSS: 3 mL. FLUID REPLACEMENT: Crystalloid. COMPLICATIONS: None. CONDITON AND DISPOSITION: Avani tolerated the procedure and was recovering in the recover room in good condition.
== END 2021-02-21 08:45 | disposition home or self-care (01) ==
LOC: M SDC 13:14 → M MS5PR 20:30 → M SDC 02-21 08:45
PROVIDERS: ATTEND Obstetrics & Gynecology
DX: N95.0 Postmenopausal bleeding (principal); N85.01 Benign endometrial hyperplasia; N84.0 Polyp of corpus uteri; E03.9 Hypothyroidism, unspecified; I48.91 Unspecified atrial fibrillation; Z79.02 Long term (current) use of antithrombotics/antiplatelets; E78.5 Hyperlipidemia, unspecified; I10 Essential (primary) hypertension; F32.9 Major depressive disorder, single episode, unspecified; J44.9 Chronic obstructive pulmonary disease, unspecified; Z79.899 Other long term (current) drug therapy; F17.218 Nicotine dependence, cigarettes, with other nicotine-induced disorders
CPT/HCPCS: 58558; 88305; J0131; J2250; J3010

== ENCOUNTER → 2021-06-21 | Outpatient (CLI) | payer MEDICARE, OTHER ==
[~2021-06-21] MED LIST changes: -CITA10TA5 PO; +CITA10TA7 PO; -LR 1,000 ML IV ONE; +PRAD150C6 PO
== END ==
LOC: M LABSMTC 09:06
PROVIDERS: ATTEND Anesthesiology
DX: Z01.812 Encounter for preprocedural laboratory examination (principal); Z20.822 Contact with and (suspected) exposure to COVID-19

== ENCOUNTER 2021-06-26 06:04 | Day surgery (SDC) | payer MEDICARE, OTHER ==
[~2021-06-26] VITALS: Ht 167.6 cm; Wt 147.5 kg
[2021-06-26] VITALS (8 sets, daily range): BP systolic 126–136; BP diastolic 70–80
[~2021-06-26 06:04] MED LIST changes: +LR 1,000 ML IV ONE; +ceFAZolin SOD 2 GM in IV 1 EA IV ONE
[2021-06-26 06:32] LABS: HEMOGLOBIN 13.2 g/dl (12.0-15.5); MEAN CORPUSCULAR HEMOGLOBIN 31.7 pg (27.0-33.0); MEAN CORPUSCULAR VOLUME 95.9 fl (80.0-96.0); PLATELET COUNT, AUTOMATED 166 10^3/uL (150-450); RED BLOOD COUNT 4.17 10^6/uL (4.00-5.40)
[2021-06-26] MEDS ORDERED: ROCURONIUM BROMIDE 50 MG/5 ML VIAL As Ordered ONE (07:12)
[2021-06-26] MEDS ORDERED: propofoL 200 MG/20 ML VIAL As Ordered ONE (07:12)
[2021-06-26] MEDS ORDERED: LIDOCAINE 2% 100MG/5ML SDV (FOR ANES.) As Ordered ONE (07:12)
[2021-06-26] MEDS ORDERED: fentaNYL 250 MCG/5 ML INJECTION As Ordered ONE (07:13)
[2021-06-26] MEDS ORDERED: MIDAZOLAM INJ 2MG/2ML VIAL (J2250 PER 1MG) As Ordered ONE (07:14)
[2021-06-26] MEDS ORDERED: LACRILUBE (AKWA TEARS) OPHTH OINT 3.5 GM As Ordered ONE (07:50)
[2021-06-26] MEDS ORDERED: SUGAMMADEX SODIUM 500 MG/5 ML VIAL (BRIDION) As Ordered ONE (09:51)
[2021-06-26] MEDS ORDERED: KETOROLAC 60MG 2ML VIAL As Ordered ONE (09:51)
[2021-06-26] MEDS ORDERED: METOCLOPRAMIDE INJ 10MG/2ML VIAL (J2765 PER 1) As Ordered ONE (09:51)
[2021-06-26] MEDS ORDERED: ACETAMINOPHEN 1000MG 100ML IV BTL (OFIRMEV) (J0131 PER 10MG) As Ordered ONE (09:51)
[2021-06-26] MEDS ORDERED: ONDANSETRON 4MG/2ML VIAL As Ordered ONE (09:51)
[2021-06-26] MEDS ORDERED: HYDROmorphone HCL 2MG/ML 1ML VIAL As Ordered ONE (09:51)
[2021-06-26] MEDS ORDERED: LR 1,000 ML IV SCH (11:00)
[2021-06-26] MEDS ORDERED: fentaNYL 100 MCG/2 ML INJECTION IV PRN (11:00)
[2021-06-26] MEDS ORDERED: ONDANSETRON 4MG/2ML VIAL IV PRN (11:00)
[2021-06-26] MEDS ORDERED: METOCLOPRAMIDE INJ 10MG/2ML VIAL (J2765 PER 1) IV PRN (11:00)
[2021-06-26] MEDS ORDERED: PERCOCET 5MG/325MG TAB PO PRN (11:00)
[2021-06-26] MEDS ORDERED: NALBUPHINE HCL 10 MG/ML AMP (J2300) IV PRN (11:05)
[2021-06-26] MEDS ORDERED: NALOXONE INJ 0.4MG/1ML VIAL (J2310 PER 1MG) IV PRN (11:05)
[2021-06-26] MEDS ORDERED: diphenhydrAMINE 50MG/ML VIAL (J1200) IV PRN (11:05)
[2021-06-26] MEDS ORDERED: EPIDURAL/PCA KEYS XX PRN (11:05)
[2021-06-26] MEDS ORDERED: IBUPROFEN 600MG TAB PO PRN (11:15)
[2021-06-26] MEDS: LR 1,000 ML IV SCH ×2 (12:30→18:51)
[2021-06-26] MEDS ORDERED: MORPHINE 1MG/ML IN 0.9% NACL 100ML IV BAG IV PRN (13:00)
[2021-06-26] MEDS ORDERED: ALBUTEROL 90 MCG/ACT 8GM HFA INHALER INH PRN (16:45)
[2021-06-26] MEDS ORDERED: LEVO175T2 PO (17:46)
[2021-06-26] MEDS ORDERED: PRAD75CA5 PO (17:46)
[2021-06-26] MEDS: DABIGATRAN ETEXILATE 75 MG CAP (PRADAXA) PO SCH (21:20)
[2021-06-26] MEDS: GABAPENTIN 100 MG CAP PO SCH (21:21)
[2021-06-26] MEDS: FAMOTIDINE 20 MG TAB PO SCH (21:22)
[2021-06-27 01:25] VITALS: BP 125/74
[2021-06-27] MEDS: LR 1,000 ML IV SCH ×2 (03:00→11:15)
[2021-06-27 05:29] VITALS: BP 131/65
[2021-06-27 05:38] LABS: HEMATOCRIT 35.5 % (36.0-47.0); HEMOGLOBIN 11.5 g/dl (12.0-15.5); MEAN CORPUSCULAR HEMOGLOBIN 31.3 pg (27.0-33.0); MEAN CORPUSCULAR HGB CONC 32.4 g/dl (32.0-36.5); MEAN CORPUSCULAR VOLUME 96.7 fl (80.0-96.0); PLATELET COUNT, AUTOMATED 138 10^3/uL (150-450); RED BLOOD COUNT 3.67 10^6/uL (4.00-5.40); WHITE BLOOD COUNT 6.1 10^3/uL (4.0-10.0)
[2021-06-27] MEDS ORDERED: NORCO, ANEXSIA 5/325MG TABLET (HYDROcodone/ACETAMINOPHEN) PO PRN (06:00)
[2021-06-27] MEDS: DABIGATRAN ETEXILATE 75 MG CAP (PRADAXA) PO SCH (08:07)
[2021-06-27] MEDS: FAMOTIDINE 20 MG TAB PO SCH (08:07)
[2021-06-27 08:10] VITALS: BP 133/79
[2021-06-27] MEDS: GABAPENTIN 100 MG CAP PO SCH (08:10)
[2021-06-27] MEDS ORDERED: CALCITRIOL 0.25 MCG CAP (S0169) PO SCH (09:00)
[2021-06-27] MEDS ORDERED: buPROPion **XL** TABLET 150MG (WELLBUTRIN XL) PO SCH (09:00)
[2021-06-27] MEDS ORDERED: bisoproloL fumarate 5 MG TAB PO SCH (09:00)
[2021-06-27] MEDS ORDERED: allopurinoL 300 MG TAB PO SCH (09:00)
[2021-06-27] MEDS ORDERED: ATORVASTATIN 20 MG TAB PO SCH (09:00)
[2021-06-27] MEDS ORDERED: CitaloPRAM (CeleXA) 10 MG TABLET PO SCH (09:00)
[2021-06-27] MEDS ORDERED: allopurinoL 100 MG TAB PO SCH ×2 (09:00)
== END 2021-06-27 11:42 | disposition home or self-care (01) ==
LOC: M SDC 06:04 → M MS5PR 12:05 → M SDC 06-27 11:42
PROVIDERS: ATTEND Obstetrics & Gynecology
DX: N85.02 Endometrial intraepithelial neoplasia [EIN] (principal); D25.9 Leiomyoma of uterus, unspecified; N72 Inflammatory disease of cervix uteri; D26.0 Other benign neoplasm of cervix uteri; N73.6 Female pelvic peritoneal adhesions (postinfective); N99.71 Accidental puncture and laceration of a genitourinary system organ or structure during a genitourinary system procedure; I48.91 Unspecified atrial fibrillation; E03.9 Hypothyroidism, unspecified; G47.30 Sleep apnea, unspecified; M10.9 Gout, unspecified; J44.9 Chronic obstructive pulmonary disease, unspecified; I11.0 Hypertensive heart disease with heart failure; I50.9 Heart failure, unspecified; F32.9 Major depressive disorder, single episode, unspecified; E11.9 Type 2 diabetes mellitus without complications; E66.2 Morbid (severe) obesity with alveolar hypoventilation; Z68.43 Body mass index [BMI] 50.0-59.9, adult; N28.89 Other specified disorders of kidney and ureter; F17.210 Nicotine dependence, cigarettes, uncomplicated; Z79.899 Other long term (current) drug therapy; Z79.01 Long term (current) use of anticoagulants
CPT/HCPCS: 36415; 58552; 85027; 86850; 86900; 86901; 88307; 96374; J0131; J0690; J1170; J1885; J2250; J2405; J2765; J3010

== ENCOUNTER → 2021-10-22 | Outpatient (CLI) | payer MEDICARE, OTHER ==
[~2021-10-22] MED LIST changes: +LEVO175T2 PO; -LR 1,000 ML IV ONE; -ceFAZolin SOD 2 GM in IV 1 EA IV ONE
== END ==
LOC: M SOG 08:05
PROVIDERS: ATTEND Orthopaedic Surgery Adult Reconstructive Orthopaedic Surgery
DX: M17.0 Bilateral primary osteoarthritis of knee (principal)

== ENCOUNTER → 2021-11-11 | Outpatient (CLI) | payer MEDICARE, OTHER ==
[~2021-11-11] MED LIST changes: +BUPIVACAINE HCL 0.5% 30ML VIAL As Ordered ONE; +ISOVUE-300 61% 50ML VIAL As Ordered ONE; +LIDOCAINE 1% MDV 20ML VIAL As Ordered ONE; +methylPREDNISolone 80MG/ML SUSP 1ML VIAL (J1040) As Ordered ONE
== END ==
LOC: M RADPRO 15:02
PROVIDERS: ATTEND Orthopaedic Surgery Adult Reconstructive Orthopaedic Surgery
DX: M17.11 Unilateral primary osteoarthritis, right knee (principal)
CPT/HCPCS: 20610; 76000; J1040; Q9967

== ENCOUNTER 2021-12-22 18:42 | Emergency (ER) | payer MEDICARE, OTHER ==
[~2021-12-22] VITALS: Ht 170.2 cm; Wt 150.0 kg
[~2021-12-22 18:42] MED LIST changes: -BUPIVACAINE HCL 0.5% 30ML VIAL As Ordered ONE; -ISOVUE-300 61% 50ML VIAL As Ordered ONE; -LIDOCAINE 1% MDV 20ML VIAL As Ordered ONE; -methylPREDNISolone 80MG/ML SUSP 1ML VIAL (J1040) As Ordered ONE
[2021-12-22 18:43] VITALS: BP 130/80
== END 2021-12-22 21:34 | disposition left against medical advice (07) ==
LOC: M ED 18:42
DX: Z53.21 Procedure and treatment not carried out due to patient leaving prior to being seen by health care provider (principal)

== ENCOUNTER → 2021-12-26 | Outpatient (REF) | payer MEDICARE, OTHER | LOC: M LAB REF 17:06 | PROVIDERS: ATTEND Nurse Practitioner Adult Health | DX: E11.40 Type 2 diabetes mellitus with diabetic neuropathy, unspecified (principal) ==

== ENCOUNTER → 2022-04-23 | Outpatient (CLI) | payer MEDICARE, OTHER | LOC: M SOG 08:53 | PROVIDERS: ATTEND Physician Assistant | DX: M79.641 Pain in right hand (principal); M79.642 Pain in left hand; Z53.8 Procedure and treatment not carried out for other reasons ==

== ENCOUNTER → 2022-05-07 | Outpatient (CLI) | payer MEDICARE, OTHER | LOC: M SOG 08:00 | PROVIDERS: ATTEND Physician Assistant | DX: M79.641 Pain in right hand (principal); M79.642 Pain in left hand; Z53.8 Procedure and treatment not carried out for other reasons ==

== ENCOUNTER → 2022-05-19 | Outpatient (CLI) | payer MEDICARE, OTHER | LOC: M SOG 10:35 | PROVIDERS: ATTEND Orthopaedic Surgery Hand Surgery | DX: M79.641 Pain in right hand (principal); M79.642 Pain in left hand ==

== ENCOUNTER → 2022-06-19 | Outpatient (REF) | payer MEDICARE, OTHER | LOC: M LAB REF 16:21 | PROVIDERS: ATTEND Internal Medicine | DX: R19.7 Diarrhea, unspecified (principal) ==

== ENCOUNTER → 2022-07-06 | Outpatient (REF) | payer MEDICARE, OTHER | LOC: M LAB REF 16:04 | PROVIDERS: ATTEND Internal Medicine | DX: R19.7 Diarrhea, unspecified (principal) ==

== ENCOUNTER → 2022-09-03 | Outpatient (CLI) | payer MEDICARE, OTHER | LOC: M SOG 09:26 | PROVIDERS: ATTEND Orthopaedic Surgery | DX: M25.562 Pain in left knee (principal); M25.561 Pain in right knee ==

== ENCOUNTER → 2023-06-28 | Outpatient (REF) | payer MEDICARE, OTHER ==
[2023-06-28 19:07] LABS: PERCENT SATURATION 7.1 % (13.2-45.0)
== END ==
LOC: M LAB REF 17:10
PROVIDERS: ATTEND Internal Medicine Nephrology
DX: D50.9 Iron deficiency anemia, unspecified (principal)

== ENCOUNTER → 2023-10-05 | Outpatient (REF) | payer MEDICARE, OTHER ==
[~2023-10-05] MED LIST changes: +BUPR-597 PO; -BUPR300T92 PO
== END ==
LOC: M LAB REF 16:14
PROVIDERS: ATTEND Nurse Practitioner Family
DX: L98.499 Non-pressure chronic ulcer of skin of other sites with unspecified severity (principal)

== ENCOUNTER 2023-10-26 16:17 | Emergency (ER) | payer MEDICARE, OTHER ==
[~2023-10-26] VITALS: Ht 167.6 cm; Wt 128.6 kg
[2023-10-26 17:32] LABS: BASO % 0.5 % (0.0-1.0); EOS # 0.2 10^3/uL (0.0-0.5); EOS % 2.5 % (0.0-3.0); LYMPH # 0.7 10^3/uL (1.5-5.0); LYMPH % 11.3 % (24.0-44.0); MEAN CORPUSCULAR HEMOGLOBIN 20.9 pg (27.0-33.0); MEAN CORPUSCULAR HGB CONC 27.4 g/dl (32.0-36.5); MEAN CORPUSCULAR VOLUME 76.3 fl (80.0-96.0); MONO # 0.3 10^3/uL (0.0-0.8); MONO % 4.8 % (2.0-8.0); NEUTROPHILS # 5.2 10^3/uL (1.5-8.5); NEUTROPHILS % 80.3 % (36.0-66.0); PLATELET COUNT, AUTOMATED 228 10^3/uL (150-450); RED BLOOD COUNT 2.49 10^6/uL (4.00-5.40); WHITE BLOOD COUNT 6.5 10^3/uL (4.0-10.0)
[2023-10-26 17:36] LABS: HEMOGLOBIN 5.2 g/dl (12.0-15.5)
[2023-10-26 17:47] LABS: INR 1.17; PROTHROMBIN TIME 14.6 SECONDS (12.5-14.5)
[2023-10-26 17:54] LABS: CREATININE FOR GFR 2.55 MG/DL (0.55-1.30); GLOMERULAR FILTRATION RATE 19.7 (>39); MAGNESIUM LEVEL 2.2 MG/DL (1.8-2.4); POTASSIUM SERUM 5.2 MMOL/L (3.5-5.1)
[2023-10-26 17:57] LABS: FREE T4 0.28 NG/DL (0.89-1.76); THYROID STIMULATING HORMONE 39.542 uIU/ML (0.55-4.78)
[2023-10-26] MEDS: PANTOPRAZOLE 40MG VIAL IV ONE (18:27)
[2023-10-26 19:24] LABS: PERCENT SATURATION 2.9 % (13.2-45.0)
[2023-10-26 19:31] VITALS: BP 100/59; TEMP 97.2; O2SAT 98
[2023-10-26] MEDS ORDERED: FURO40TA2 PO (19:44)
[2023-10-26] MEDS ORDERED: VITAD400CA PO (19:44)
[2023-10-26] MEDS ORDERED: ALBU8.5H INH (19:44)
[2023-10-26] MEDS ORDERED: ELIQ5TAB PO (19:44)
[2023-10-26 19:46] VITALS: BP 127/59; TEMP 97.3; O2SAT 96
[2023-10-26] MEDS ORDERED: HOME MED LIST COMPLETE! XX SCH (19:50)
[2023-10-26 20:31] VITALS: BP 114/61; TEMP 97.5; O2SAT 95
[2023-10-26] MEDS: ALBUTEROL 90 MCG/ACT 8GM HFA INHALER INH SCH (20:47)
[2023-10-26 21:05] VITALS: BP 118/74; TEMP 97.5; O2SAT 95
[2023-10-26] MEDS: GABAPENTIN 100 MG CAP PO SCH (21:23)
[2023-10-26] MEDS: LEVOTHYROXINE 25MCG TABLET (0.025MG) PO SCH (21:23)
[2023-10-26] MEDS: LEVOTHYROXINE 150MCG TABLET (0.15MG) PO SCH (21:23)
[2023-10-26] MEDS: CALCIUM GLUCONATE 1,000MG/10ML VIAL (100MG/ML) IV ONE (23:11)
[2023-10-26] MEDS: DEXTROSE 50% 50ML SYRINGE IV ONE (23:11)
[2023-10-26] MEDS: HumuLIN R (REGULAR) INSULIN (NovoLIN R) **100U/ML** PER UNIT IV ONE (23:17)
[2023-10-27 02:00] VITALS: BP 109/54; TEMP 97.4; O2SAT 98
[2023-10-27] MEDS ORDERED: CALCITRIOL 0.25 MCG CAP (S0169) PO SCH (09:00)
[2023-10-27] MEDS ORDERED: VITAMIN D (CHOLECALCIFEROL) 400 INTERNATIONAL UNITS TAB PO SCH (09:00)
[2023-10-27] MEDS ORDERED: allopurinoL 300 MG TAB PO SCH ×2 (09:00)
[2023-10-27] MEDS ORDERED: allopurinoL 100 MG TAB PO SCH ×2 (09:00)
[2023-10-27] MEDS ORDERED: CitaloPRAM (CeleXA) 10 MG TABLET PO SCH (09:00)
[2023-10-27] MEDS ORDERED: bisoproloL fumarate 5 MG TAB PO SCH (09:00)
== END 2023-10-27 02:05 | disposition short-term general hospital (02) ==
LOC: EDBD 16:17 → M ED 16:17 → CANBEDREQ 20:04 → M ED 10-27 02:05
DX: D64.9 Anemia, unspecified (principal); K92.1 Melena; I48.91 Unspecified atrial fibrillation; J44.9 Chronic obstructive pulmonary disease, unspecified; N18.9 Chronic kidney disease, unspecified; F32.9 Major depressive disorder, single episode, unspecified; F17.210 Nicotine dependence, cigarettes, uncomplicated; Z79.51 Long term (current) use of inhaled steroids; Z79.899 Other long term (current) drug therapy
CPT/HCPCS: 71045; 80048; 82607; 83550; 83735; 84439; 84443; 85025; 85046; 85610; 85730; 86850; 86900; 86901; 86920; 93005; 93041; 94640; 94760; 96374; 96375; 99285; J0612; J1815; J2470; P9016

== ENCOUNTER → 2023-11-09 | Outpatient (REF) | payer MEDICARE, OTHER ==
[~2023-11-09] MED LIST changes: +ALBU8.5H INH; +ELIQ5TAB PO; +FURO40TA2 PO; +VITAD400CA PO
[2023-11-09 20:22] LABS: FERRITIN 33.1 NG/ML (7.3-270.7)
== END ==
LOC: M LAB REF 17:26
PROVIDERS: ATTEND Nurse Practitioner Adult Health
DX: D64.9 Anemia, unspecified (principal)

== ENCOUNTER → 2023-12-01 | Outpatient (REF) | payer MEDICARE, OTHER ==
[~2023-12-01] MED LIST changes: +BUPR150T12 PO; +D3 S1CAP3 PO; +FAMO20TA PO; +FOLI1TAB11 PO; +MAGN500T6 PO; +MECL-86 PO; +METR-265 PO; +NEOM500T PO; +PERCOCET PO; +TREL1AER INH
[2023-12-01 18:17] LABS: PERCENT SATURATION 7.8 % (13.2-45.0)
== END ==
LOC: M LAB REF 17:10
PROVIDERS: ATTEND Internal Medicine Nephrology
DX: D50.9 Iron deficiency anemia, unspecified (principal)

== ENCOUNTER 2023-12-17 08:39 | Inpatient (IN) | payer MEDICARE, OTHER ==
[2023-12-17] VITALS (8 sets, daily range): BP systolic 113–139; BP diastolic 68–85; TEMP 96.8–97.3; O2SAT 96–99
[~2023-12-17] VITALS: Ht 165.1 cm; Wt 132.4 kg
[~2023-12-17 08:39] MED LIST changes: -BUPR150T12 PO; -FAMO20TA PO; +LIDOCAINE 2% 100MG/5ML SDV (FOR ANES.) As Ordered ONE; -MAGN500T6 PO; -MECL-86 PO; -METR-265 PO; +MIDAZOLAM INJ 2MG/2ML VIAL As Ordered ONE; -NEOM500T PO; +ONDANSETRON 4MG 2ML VIAL As Ordered ONE; -PERCOCET PO; +ROCURONIUM BROMIDE 50MG/5ML VIAL As Ordered ONE; +SUGAMMADEX SODIUM 500 MG/5 ML VIAL (BRIDION) As Ordered ONE; -TREL1AER INH; +fentaNYL 100 MCG/2 ML INJECTION As Ordered ONE; +propofoL 200 MG/20 ML VIAL As Ordered ONE
[2023-12-17] MEDS: GLUCAGON INJ 1MG VIAL As Ordered ONE (09:07)
[2023-12-17] MEDS ORDERED: NEOM500T PO (09:13)
[2023-12-17] MEDS ORDERED: METR-265 PO (09:13)
[2023-12-17] MEDS ORDERED: FAMO20TA PO (09:15)
[2023-12-17] MEDS ORDERED: MAGN500T6 PO (09:15)
[2023-12-17] MEDS ORDERED: BUPR150T12 PO (09:15)
[2023-12-17] MEDS ORDERED: MECL-86 PO ×2 (09:15→09:30)
[2023-12-17] MEDS ORDERED: TREL1AER INH (09:15)
[2023-12-17] MEDS ORDERED: ceFAZolin SOD 3 GM in IV 1 EA IV ONE (09:20)
[2023-12-17] MEDS ORDERED: HOME MED LIST COMPLETE! XX SCH (09:35)
[2023-12-17] MEDS: metroNIDAZOLE 500 MG in IV 1 EA IV ONE (09:40)
[2023-12-17] MEDS: LR 1,000 ML IV SCH ×2 (09:44→14:12)
[2023-12-17] MEDS: ceFAZolin SOD 2 GM in IV 1 EA IV ONE (09:49)
[2023-12-17] MEDS: ceFAZolin SOD 1 GM in D5W MINI-BAG PLUS 50 ML IV ONE (09:49)
[2023-12-17] MEDS ORDERED: ETOMIDATE INJ 20MG/10ML VIAL As Ordered ONE (09:56)
[2023-12-17] MEDS ORDERED: PHENYLephrine 500MCG 5ML (100MCG/ML) SYRINGE As Ordered ONE (11:08)
[2023-12-17] MEDS ORDERED: HYDROmorphone HCL 2MG/ML 1ML VIAL As Ordered ONE (11:32)
[2023-12-17] MEDS ORDERED: METOPROLOL 5 MG/5 ML VIAL As Ordered ONE (11:40)
[2023-12-17] MEDS ORDERED: ONDANSETRON 4MG 2ML VIAL IV PRN ×2 (12:40→13:00)
[2023-12-17] MEDS ORDERED: MORPHINE 2 MG/ML 1ML VIAL IV PRN (12:40)
[2023-12-17] MEDS ORDERED: MORPHINE 4 MG/ML 1ML VIAL IV PRN (12:40)
[2023-12-17] MEDS ORDERED: IPRATROPIUM 0.5MG/ALBUTEROL 2.5MG INH SOL UD 3ML (DUONEB) NEB PRN (12:40)
[2023-12-17] MEDS ORDERED: HYDROMORPHONE HCL 0.5 MG/ 0.5 ML SYRINGE IV PRN (13:00)
[2023-12-17] MEDS ORDERED: fentaNYL 100 MCG/2 ML INJECTION IV PRN (13:00)
[2023-12-17] MEDS ORDERED: oxyCODONE 5MG TAB PO PRN (13:00)
[2023-12-17] MEDS ORDERED: MECLIZINE 25 MG TABLET PO PRN (13:55)
[2023-12-17] MEDS: NS 1,000 ML IV SCH (14:12)
[2023-12-17] MEDS: KETOROLAC 30 MG/ML 1ML VIAL IV SCH (14:16)
[2023-12-17 14:34] LABS: BASO % 0.1 % (0.0-1.0); EOS % 0.1 % (0.0-3.0); HEMATOCRIT 31.8 % (36.0-47.0); HEMOGLOBIN 9.5 g/dl (12.0-15.5); LYMPH # 0.3 10^3/uL (1.5-5.0); LYMPH % 3.8 % (24.0-44.0); MEAN CORPUSCULAR HGB CONC 29.9 g/dl (32.0-36.5); MEAN CORPUSCULAR VOLUME 87.1 fl (80.0-96.0); MONO # 0.2 10^3/uL (0.0-0.8); MONO % 2.3 % (2.0-8.0); NEUTROPHILS # 7.4 10^3/uL (1.5-8.5); NEUTROPHILS % 93.1 % (36.0-66.0); PLATELET COUNT, AUTOMATED 191 10^3/uL (150-450); RED BLOOD COUNT 3.65 10^6/uL (4.00-5.40); WHITE BLOOD COUNT 7.9 10^3/uL (4.0-10.0)
[2023-12-17 14:58] LABS: CALCIUM LEVEL 8.9 MG/DL (8.3-10.6); CREATININE FOR GFR 1.72 MG/DL (0.55-1.30); POTASSIUM SERUM 4.3 MMOL/L (3.5-5.1)
[2023-12-17] MEDS: allopurinoL 100 MG TAB PO SCH (15:16)
[2023-12-17] MEDS: ATORVASTATIN 20 MG TAB PO SCH (15:16)
[2023-12-17] MEDS: allopurinoL 300 MG TAB PO SCH (15:16)
[2023-12-17] MEDS: GABAPENTIN 100 MG CAP PO SCH (15:16)
[2023-12-17] MEDS: CitaloPRAM (CeleXA) 10 MG TABLET PO SCH (15:16)
[2023-12-17] MEDS: FOLIC ACID 1MG TAB PO SCH (15:16)
[2023-12-17] MEDS: CALCITRIOL 0.25 MCG CAP (S0169) PO SCH (15:17)
[2023-12-17] MEDS: bisoproloL fumarate 5 MG TAB PO SCH (15:17)
[2023-12-17] MEDS: IPRATROPIUM 0.5MG/ALBUTEROL 2.5MG INH SOL UD 3ML (DUONEB) NEB SCH (15:43)
[2023-12-17] MEDS: SYMBICORT 80/4.5MCG INHALER 6GM INH SCH (20:24)
[2023-12-18] VITALS (9 sets, daily range): BP systolic 94–111; BP diastolic 42–65; TEMP 97–98; O2SAT 91–96
[2023-12-18] MEDS: NS 1,000 ML IV SCH ×2 (00:18→09:10)
[2023-12-18] MEDS: LEVOTHYROXINE 25MCG TABLET (0.025MG) PO SCH (05:25)
[2023-12-18] MEDS: LEVOTHYROXINE 150MCG TABLET (0.15MG) PO SCH (05:26)
[2023-12-18 05:44] LABS: HEMATOCRIT 27.5 % (36.0-47.0); HEMOGLOBIN 8.2 g/dl (12.0-15.5); MEAN CORPUSCULAR HEMOGLOBIN 26.2 pg (27.0-33.0); MEAN CORPUSCULAR HGB CONC 29.8 g/dl (32.0-36.5); MEAN CORPUSCULAR VOLUME 87.9 fl (80.0-96.0); PLATELET COUNT, AUTOMATED 164 10^3/uL (150-450); RED BLOOD COUNT 3.13 10^6/uL (4.00-5.40); WHITE BLOOD COUNT 6.6 10^3/uL (4.0-10.0)
[2023-12-18 06:01] LABS: ALBUMIN 2.5 G/DL (3.2-5.2); ALKALINE PHOSPHATASE 97 U/L (46-116); ALT/SGPT 9 U/L (7.0-40); AST/SGOT < 8 U/L (<34); BILIRUBIN,TOTAL 0.2 MG/DL (0.3-1.2); BLOOD UREA NITROGEN 28 MG/DL (9-23); CALCIUM LEVEL 7.9 MG/DL (8.3-10.6); CARBON DIOXIDE LEVEL 23 MMOL/L (20-31); CHLORIDE LEVEL 111 MMOL/L (98-107); CREATININE FOR GFR 1.86 MG/DL (0.55-1.30); GLOMERULAR FILTRATION RATE 28.4 (>39); GLUCOSE, FASTING 108 MG/DL (74-106); POTASSIUM SERUM 4.3 MMOL/L (3.5-5.1); SODIUM LEVEL 138 MMOL/L (136-145); TOTAL PROTEIN 5.5 G/DL (5.7-8.2)
[2023-12-18] MEDS: TIOTROPIUM INHALER/CAPSULE (SPIRIVA) INH SCH (07:54)
[2023-12-18] MEDS: PANTOPRAZOLE 40MG VIAL IV SCH (08:56)
[2023-12-18] MEDS: HEPARIN SOD (PORCINE) 5000UNITS/ML 1ML VIAL/SYRINGE SQ SCH (09:41)
[2023-12-18] MEDS: LEVALBUTEROL 1.25MG 0.5ML CONCENTRATE NEB INH SCH (14:06)
[2023-12-18] MEDS: MORPHINE 2 MG/ML 1ML VIAL IV PRN (22:57)
[2023-12-19] VITALS (11 sets, daily range): BP systolic 96–123; BP diastolic 50–71; TEMP 97–98.1; O2SAT 89–100
[2023-12-19 06:02] LABS: HEMATOCRIT 26.7 % (36.0-47.0); HEMOGLOBIN 7.8 g/dl (12.0-15.5); MEAN CORPUSCULAR HEMOGLOBIN 25.9 pg (27.0-33.0); MEAN CORPUSCULAR HGB CONC 29.2 g/dl (32.0-36.5); MEAN CORPUSCULAR VOLUME 88.7 fl (80.0-96.0); PLATELET COUNT, AUTOMATED 170 10^3/uL (150-450); RED BLOOD COUNT 3.01 10^6/uL (4.00-5.40); WHITE BLOOD COUNT 5.3 10^3/uL (4.0-10.0)
[2023-12-19 06:25] LABS: ALBUMIN 2.3 G/DL (3.2-5.2); ALKALINE PHOSPHATASE 86 U/L (46-116); ALT/SGPT < 9 U/L (7.0-40); AST/SGOT < 8 U/L (<34); BILIRUBIN,TOTAL 0.2 MG/DL (0.3-1.2); BLOOD UREA NITROGEN 25 MG/DL (9-23); CALCIUM LEVEL 8.1 MG/DL (8.3-10.6); CARBON DIOXIDE LEVEL 23 MMOL/L (20-31); CHLORIDE LEVEL 115 MMOL/L (98-107); GLOMERULAR FILTRATION RATE 36.3 (>39); GLUCOSE, FASTING 79 MG/DL (74-106); POTASSIUM SERUM 3.7 MMOL/L (3.5-5.1); SODIUM LEVEL 142 MMOL/L (136-145); TOTAL PROTEIN 5.3 G/DL (5.7-8.2)
[2023-12-19] MEDS: PERCOCET 5MG/325MG TAB PO PRN (10:05)
[2023-12-19 11:25] LABS: MAGNESIUM LEVEL 1.8 MG/DL (1.8-2.4)
[2023-12-19] MEDS: METOPROLOL TART 12.5 MG PER 1/2 TAB PO SCH (14:39)
[2023-12-20 00:05] VITALS: BP 127/72; TEMP 97.7; O2SAT 95
[2023-12-20 04:14] VITALS: BP 126/71; TEMP 97.5; O2SAT 95
[2023-12-20 05:58] LABS: HEMATOCRIT 30.9 % (36.0-47.0); HEMOGLOBIN 9.1 g/dl (12.0-15.5); MEAN CORPUSCULAR HEMOGLOBIN 26.2 pg (27.0-33.0); MEAN CORPUSCULAR HGB CONC 29.4 g/dl (32.0-36.5); PLATELET COUNT, AUTOMATED 156 10^3/uL (150-450); RED BLOOD COUNT 3.47 10^6/uL (4.00-5.40); WHITE BLOOD COUNT 5.3 10^3/uL (4.0-10.0)
[2023-12-20 06:26] LABS: ALBUMIN 2.2 G/DL (3.2-5.2); ALKALINE PHOSPHATASE 81 U/L (46-116); ALT/SGPT < 9 U/L (7.0-40); AST/SGOT 12 U/L (<34); BILIRUBIN,TOTAL 0.4 MG/DL (0.3-1.2); BLOOD UREA NITROGEN 21 MG/DL (9-23); CALCIUM LEVEL 8.2 MG/DL (8.3-10.6); CARBON DIOXIDE LEVEL 22 MMOL/L (20-31); CHLORIDE LEVEL 118 MMOL/L (98-107); CREATININE FOR GFR 1.29 MG/DL (0.55-1.30); GLOMERULAR FILTRATION RATE 43.2 (>39); GLUCOSE, FASTING 92 MG/DL (74-106); POTASSIUM SERUM 4.3 MMOL/L (3.5-5.1); SODIUM LEVEL 142 MMOL/L (136-145); TOTAL PROTEIN 5.1 G/DL (5.7-8.2)
[2023-12-20 08:00] VITALS: BP 141/80; TEMP 97.2; O2SAT 100
[2023-12-20] MEDS: SIMETHICONE 80MG CHEW TAB PO SCH (09:28)
[2023-12-20 12:00] VITALS: BP 114/63; TEMP 97.3; O2SAT 95
[2023-12-20 16:00] VITALS: BP 116/62; TEMP 97.3; O2SAT 96
[2023-12-20 20:34] VITALS: BP 138/84; TEMP 97.3; O2SAT 95
[2023-12-21] VITALS: BP 128/74; TEMP 97.5; O2SAT 94
[2023-12-21 04:00] VITALS: BP 119/72; TEMP 97.2; O2SAT 94
[2023-12-21 05:18] VITALS: BP 116/68
[2023-12-21 08:00] VITALS: BP 136/81; TEMP 97.3; O2SAT 94
[2023-12-21] MEDS ORDERED: PERCOCET PO (08:00)
[2023-12-21 08:28] LABS: HEMATOCRIT 31.8 % (36.0-47.0); HEMOGLOBIN 9.7 g/dl (12.0-15.5); MEAN CORPUSCULAR HEMOGLOBIN 27.1 pg (27.0-33.0); MEAN CORPUSCULAR HGB CONC 30.5 g/dl (32.0-36.5); MEAN CORPUSCULAR VOLUME 88.8 fl (80.0-96.0); PLATELET COUNT, AUTOMATED 171 10^3/uL (150-450); RED BLOOD COUNT 3.58 10^6/uL (4.00-5.40); WHITE BLOOD COUNT 4.5 10^3/uL (4.0-10.0)
[2023-12-21 08:55] LABS: ALBUMIN 2.4 G/DL (3.2-5.2); ALKALINE PHOSPHATASE 87 U/L (46-116); ALT/SGPT < 9 U/L (7.0-40); AST/SGOT < 8 U/L (<34); BILIRUBIN,TOTAL 0.4 MG/DL (0.3-1.2); BLOOD UREA NITROGEN 20 MG/DL (9-23); CALCIUM LEVEL 8.3 MG/DL (8.3-10.6); CARBON DIOXIDE LEVEL 24 MMOL/L (20-31); CHLORIDE LEVEL 116 MMOL/L (98-107); CREATININE FOR GFR 1.26 MG/DL (0.55-1.30); GLOMERULAR FILTRATION RATE 44.4 (>39); GLUCOSE, FASTING 94 MG/DL (74-106); POTASSIUM SERUM 4.2 MMOL/L (3.5-5.1); SODIUM LEVEL 143 MMOL/L (136-145); TOTAL PROTEIN 5.4 G/DL (5.7-8.2)
== END 2023-12-21 12:18 | disposition home or self-care (01) | DRG 330 ==
LOC: M OR 08:39 → M MSPAV 13:54
PROVIDERS: ADMIT Surgery; ATTEND Surgery
PROC: 0DTF4ZZ Resection of Right Large Intestine, Percutaneous Endoscopic Approach (ICD-10-PCS; principal; 2023-12-17 10:50)
DX: C18.2 Malignant neoplasm of ascending colon (principal); I50.32 Chronic diastolic (congestive) heart failure; Z68.41 Body mass index [BMI] 40.0-44.9, adult; I48.11 Longstanding persistent atrial fibrillation; I13.0 Hypertensive heart and chronic kidney disease with heart failure and stage 1 through stage 4 chronic kidney disease, or unspecified chronic kidney disease; I49.5 Sick sinus syndrome; E66.01 Morbid (severe) obesity due to excess calories; J44.9 Chronic obstructive pulmonary disease, unspecified; E78.5 Hyperlipidemia, unspecified; F17.200 Nicotine dependence, unspecified, uncomplicated; E03.9 Hypothyroidism, unspecified; M10.9 Gout, unspecified; J45.909 Unspecified asthma, uncomplicated; N18.30 Chronic kidney disease, stage 3 unspecified; E55.9 Vitamin D deficiency, unspecified; G62.9 Polyneuropathy, unspecified; K21.9 Gastro-esophageal reflux disease without esophagitis; D63.8 Anemia in other chronic diseases classified elsewhere; Z79.01 Long term (current) use of anticoagulants; Z79.890 Hormone replacement therapy; Z79.899 Other long term (current) drug therapy

== ENCOUNTER 2024-01-03 10:57 | Outpatient (CLI) | payer MEDICARE, OTHER ==
[~2024-01-03] VITALS: Ht 167.6 cm; Wt 125.0 kg
[~2024-01-03 10:57] MED LIST changes: +ALBUTEROL SULFATE 2.5MG/0.5ML INH NEB SOLN INH PRN; +BUPR150T12 PO; +EPINEPHrine INJ 1 MG/ML 1ML AMP IM PRN; +FAMO20TA PO; -LIDOCAINE 2% 100MG/5ML SDV (FOR ANES.) As Ordered ONE; +MAGN500T6 PO; +MECL-86 PO; +METR-265 PO; -MIDAZOLAM INJ 2MG/2ML VIAL As Ordered ONE; +NEOM500T PO; +NS 1,000 ML IV SCH; -ONDANSETRON 4MG 2ML VIAL As Ordered ONE; +PERCOCET PO; -ROCURONIUM BROMIDE 50MG/5ML VIAL As Ordered ONE; -SUGAMMADEX SODIUM 500 MG/5 ML VIAL (BRIDION) As Ordered ONE; +TREL1AER INH; +diphenhydrAMINE 50MG/ML VIAL IV PRN; -fentaNYL 100 MCG/2 ML INJECTION As Ordered ONE; +methylPREDNISolone 125MG 2ML VIAL IV PRN; -propofoL 200 MG/20 ML VIAL As Ordered ONE
[2024-01-03 11:00] VITALS: BP 138/84; O2SAT 98
[2024-01-03] MEDS: IRON SUCROSE 400 MG in NS 250 ML OVER 2.5 HRS IV ONE (11:49)
[2024-01-03 14:32] VITALS: BP 139/76; O2SAT 98
== END 2024-01-03 14:50 ==
LOC: M INFU 10:57
PROVIDERS: ATTEND Internal Medicine Nephrology
DX: D50.9 Iron deficiency anemia, unspecified (principal)
CPT/HCPCS: 96365; 96366; J1756

== ENCOUNTER → 2024-01-06 | Outpatient (CLI) | payer MEDICARE, OTHER ==
[~2024-01-06] MED LIST changes: -ALBUTEROL SULFATE 2.5MG/0.5ML INH NEB SOLN INH PRN; -EPINEPHrine INJ 1 MG/ML 1ML AMP IM PRN; +HOME MED LIST COMPLETE! XX SCH; +LIDOCAINE 1% MDV 20ML VIAL As Ordered ONE; -NS 1,000 ML IV SCH; +OXYC1TAB23 PO; -diphenhydrAMINE 50MG/ML VIAL IV PRN; -methylPREDNISolone 125MG 2ML VIAL IV PRN
[2024-01-06 07:35] VITALS: TEMP 97.9
[2024-01-06 11:42] VITALS: BP 115/60; O2SAT 94
== END ==
LOC: M IRPRO 07:20
PROVIDERS: ATTEND Internal Medicine Hematology & Oncology
DX: R91.8 Other nonspecific abnormal finding of lung field (principal); C18.9 Malignant neoplasm of colon, unspecified; C88.40 Extranodal marginal zone B-cell lymphoma of mucosa-associated lymphoid tissue [MALT-lymphoma] not having achieved remission

== ENCOUNTER → 2024-01-17 | Outpatient (CLI) | payer MEDICARE, OTHER ==
[~2024-01-17] MED LIST changes: -HOME MED LIST COMPLETE! XX SCH; -LIDOCAINE 1% MDV 20ML VIAL As Ordered ONE
== END ==
LOC: M PLARAD 08:11
PROVIDERS: ATTEND Internal Medicine Hematology & Oncology
DX: C18.0 Malignant neoplasm of cecum (principal)
CPT/HCPCS: 78815; A9552

== ENCOUNTER → 2024-01-31 | Outpatient (REF) | payer MEDICARE, OTHER ==
[2024-01-31 20:07] LABS: FERRITIN 25.6 NG/ML (7.3-270.7)
== END ==
LOC: M LAB REF 16:41
PROVIDERS: ATTEND Nurse Practitioner Adult Health
DX: D50.9 Iron deficiency anemia, unspecified (principal)

== ENCOUNTER → 2024-02-01 | Outpatient (CLI) | payer MEDICARE, OTHER | LOC: M ONCR 09:05 | PROVIDERS: ATTEND General Practice | DX: C88.40 Extranodal marginal zone B-cell lymphoma of mucosa-associated lymphoid tissue [MALT-lymphoma] not having achieved remission (principal); C18.9 Malignant neoplasm of colon, unspecified; F17.210 Nicotine dependence, cigarettes, uncomplicated; Z80.3 Family history of malignant neoplasm of breast; Z83.3 Family history of diabetes mellitus; Z79.51 Long term (current) use of inhaled steroids; Z79.890 Hormone replacement therapy; Z79.899 Other long term (current) drug therapy; Z90.49 Acquired absence of other specified parts of digestive tract; Z90.710 Acquired absence of both cervix and uterus; Z90.722 Acquired absence of ovaries, bilateral; Z90.79 Acquired absence of other genital organ(s) ==

== ENCOUNTER 2024-02-11 10:57 | Outpatient (RCR) | payer MEDICARE, OTHER ==
[2024-02-18] MEDS ORDERED: LIDO30CR18 TOP (12:32)
[2024-02-21] MEDS ORDERED: ONDA-84 PO (11:30)
[2024-02-21] MEDS ORDERED: PROC10TA5 PO (11:30)
== END 2024-03-04 ==
LOC: M ONCR 10:57
PROVIDERS: ATTEND General Practice
DX: Z51.0 Encounter for antineoplastic radiation therapy (principal); C88.40 Extranodal marginal zone B-cell lymphoma of mucosa-associated lymphoid tissue [MALT-lymphoma] not having achieved remission

== ENCOUNTER → 2024-02-14 | Outpatient (CLI) | payer MEDICARE, OTHER ==
[~2024-02-14] VITALS: Ht 167.6 cm; Wt 126.0 kg
[~2024-02-14] MED LIST changes: +CLAR5TAB11 PO; +LIDO30CR18 TOP; +LIDOCAINE 1% MDV 20ML VIAL As Ordered ONE; +MIDAZOLAM INJ 2MG/2ML VIAL As Ordered ONE; +NS (Normal Saline) 0.9% 1,000 ML IV SCH; +ONDA-84 PO; +PROC10TA5 PO; +ceFAZolin 2 GM/D5W 50 ML IV BAG As Ordered ONE; +fentaNYL 100 MCG/2 ML INJECTION As Ordered ONE
[2024-02-14 08:38] VITALS: TEMP 97.5
[2024-02-14] MEDS: ceFAZolin SOD 2 GM in IV 1 EA IV ONE (09:52)
[2024-02-14 10:56] VITALS: BP 128/76; O2SAT 98
== END ==
LOC: M IRPRO 08:17
PROVIDERS: ATTEND Internal Medicine Hematology & Oncology
DX: C18.9 Malignant neoplasm of colon, unspecified (principal)
CPT/HCPCS: 36561; 99152; C1894; J0690; J1642; J2250; J3010

== ENCOUNTER 2024-03-23 10:15 | Outpatient (RCR) | payer MEDICARE, OTHER ==
[~2024-03-23 10:15] MED LIST changes: -LIDOCAINE 1% MDV 20ML VIAL As Ordered ONE; -MIDAZOLAM INJ 2MG/2ML VIAL As Ordered ONE; -NS (Normal Saline) 0.9% 1,000 ML IV SCH; -ceFAZolin 2 GM/D5W 50 ML IV BAG As Ordered ONE; -fentaNYL 100 MCG/2 ML INJECTION As Ordered ONE
== END 2024-04-04 ==
LOC: M ONCR 10:15
PROVIDERS: ATTEND General Practice
DX: Z51.0 Encounter for antineoplastic radiation therapy (principal); C88.40 Extranodal marginal zone B-cell lymphoma of mucosa-associated lymphoid tissue [MALT-lymphoma] not having achieved remission

== ENCOUNTER → 2024-06-05 | Outpatient (REF) | payer MEDICARE, OTHER ==
[2024-06-05 18:29] LABS: FERRITIN 169.2 NG/ML (7.3-270.7)
[2024-06-05 18:33] LABS: LYMPHOCYTES 3 % (16-44); MYELOCYTES 1 % (0-0); NEUTROPHILS 89 % (28-66); PLATELET ESTIMATE DECREASED (NORMAL)
== END ==
LOC: M LAB REF 17:07
PROVIDERS: ATTEND Nurse Practitioner Adult Health
DX: D72.9 Disorder of white blood cells, unspecified (principal); D50.9 Iron deficiency anemia, unspecified

== ENCOUNTER 2024-06-11 16:29 | Emergency (ER) | payer MEDICARE, OTHER ==
[~2024-06-11] VITALS: Ht 167.6 cm; Wt 221.0 kg
[2024-06-11 17:10] LABS: BASO % 0.3 % (0.0-1.0); EOS # 0.2 10^3/uL (0.0-0.5); EOS % 1.8 % (0.0-3.0); HEMATOCRIT 37.5 % (36.0-47.0); HEMOGLOBIN 12.2 g/dl (12.0-15.5); LYMPH # 0.9 10^3/uL (1.5-5.0); LYMPH % 7.5 % (24.0-44.0); MEAN CORPUSCULAR HEMOGLOBIN 31.7 pg (27.0-33.0); MEAN CORPUSCULAR HGB CONC 32.5 g/dl (32.0-36.5); MEAN CORPUSCULAR VOLUME 97.4 fl (80.0-96.0); MONO # 0.6 10^3/uL (0.0-0.8); MONO % 4.6 % (2.0-8.0); NEUTROPHILS % 83.3 % (36.0-66.0); PLATELET COUNT, AUTOMATED 113 10^3/uL (150-450); RED BLOOD COUNT 3.85 10^6/uL (4.00-5.40); WHITE BLOOD COUNT 12.1 10^3/uL (4.0-10.0)
[2024-06-11 17:38] LABS: CALCIUM LEVEL 8.5 MG/DL (8.3-10.6); CREATININE FOR GFR 1.31 MG/DL (0.55-1.30); GLOMERULAR FILTRATION RATE 42.4 (>39); POTASSIUM SERUM 4.6 MMOL/L (3.5-5.1)
[2024-06-11 18:03] LABS: ERYTHROCYTE SEDIMENTATION RATE 67 mm/hr (0-30)
[2024-06-11 18:14] LABS: C REACTIVE PROTEIN QUANTITATIV 4.93 MG/DL (<1.0)
[2024-06-11] MEDS ORDERED: ISOVUE-370 76% 100ML VIAL As Ordered ONE (19:50)
[2024-06-11] MEDS ORDERED: AMOX875T2 PO (21:03)
[2024-06-11] MEDS: AUGMENTIN 875 MG TAB PO ONE (21:05)
[2024-06-11 21:30] VITALS: BP 124/80; TEMP 97; O2SAT 97
== END 2024-06-11 21:32 | disposition home or self-care (01) ==
LOC: M ED 16:29
DX: K04.7 Periapical abscess without sinus (principal); I10 Essential (primary) hypertension; C18.9 Malignant neoplasm of colon, unspecified; Z79.01 Long term (current) use of anticoagulants; Z79.2 Long term (current) use of antibiotics; Z79.899 Other long term (current) drug therapy
CPT/HCPCS: 36415; 70491; 80048; 85025; 85652; 86140; 99284; Q9967

== ENCOUNTER → 2024-06-19 | Outpatient (CLI) | payer MEDICARE, OTHER ==
[~2024-06-19] MED LIST changes: +AMOX875T2 PO; +LOPE2CAP PO; +MAGICMW SSP
== END ==
LOC: M RAD 10:03
PROVIDERS: ATTEND General Practice
DX: C88.40 Extranodal marginal zone B-cell lymphoma of mucosa-associated lymphoid tissue [MALT-lymphoma] not having achieved remission (principal)

== ENCOUNTER → 2024-06-21 | Outpatient (CLI) | payer MEDICARE, OTHER | LOC: M ONCR 13:35 | PROVIDERS: ATTEND General Practice | DX: C88.41 Extranodal marginal zone B-cell lymphoma of mucosa-associated lymphoid tissue [MALT-lymphoma], in remission (principal); C18.9 Malignant neoplasm of colon, unspecified; K12.31 Oral mucositis (ulcerative) due to antineoplastic therapy; K52.1 Toxic gastroenteritis and colitis; T45.1X5A Adverse effect of antineoplastic and immunosuppressive drugs, initial encounter; F17.218 Nicotine dependence, cigarettes, with other nicotine-induced disorders; Z79.01 Long term (current) use of anticoagulants; Z79.51 Long term (current) use of inhaled steroids; Z79.890 Hormone replacement therapy; Z79.899 Other long term (current) drug therapy; Z90.49 Acquired absence of other specified parts of digestive tract; Z92.21 Personal history of antineoplastic chemotherapy; Z92.3 Personal history of irradiation ==

== ENCOUNTER → 2024-11-30 | Day surgery (SDC) | payer MEDICARE, OTHER ==
[~2024-11-30] VITALS: Ht 165.1 cm; Wt 99.2 kg
[~2024-11-30] MED LIST changes: +ALBUTEROL SULFATE 2.5 MG/0.5 ML INH CONCENTRATE NEB SOLN NEB ONE; -BUPR-597 PO; +BUPR-766 PO; +LIDOCAINE 2% MDV 20 ML VIAL As Ordered ONE; +POTA-151 PO; +POTA10CA70 PO; +RA M500C PO
[2024-11-30 10:55] VITALS: BP 111/59; O2SAT 99
== END | disposition home or self-care (01) ==
LOC: M OPP 08:22
PROVIDERS: ATTEND Surgery
DX: D12.8 Benign neoplasm of rectum (principal); K57.30 Diverticulosis of large intestine without perforation or abscess without bleeding; Z85.038 Personal history of other malignant neoplasm of large intestine; Z98.0 Intestinal bypass and anastomosis status; G47.30 Sleep apnea, unspecified; Z79.01 Long term (current) use of anticoagulants; Z79.51 Long term (current) use of inhaled steroids; Z79.899 Other long term (current) drug therapy; F17.290 Nicotine dependence, other tobacco product, uncomplicated

== ENCOUNTER → 2024-12-21 | Outpatient (CLI) | payer MEDICARE, OTHER ==
[~2024-12-21] MED LIST changes: -ALBUTEROL SULFATE 2.5 MG/0.5 ML INH CONCENTRATE NEB SOLN NEB ONE; -LIDOCAINE 2% MDV 20 ML VIAL As Ordered ONE
== END ==
LOC: M RAD 12:27
PROVIDERS: ATTEND General Practice
DX: C88.40 Extranodal marginal zone B-cell lymphoma of mucosa-associated lymphoid tissue [MALT-lymphoma] not having achieved remission (principal)

== ENCOUNTER → 2024-12-28 | Outpatient (CLI) | payer MEDICARE, OTHER | LOC: M ONCR 12:58 | PROVIDERS: ATTEND General Practice | DX: C88.40 Extranodal marginal zone B-cell lymphoma of mucosa-associated lymphoid tissue [MALT-lymphoma] not having achieved remission (principal); Z85.038 Personal history of other malignant neoplasm of large intestine; F17.210 Nicotine dependence, cigarettes, uncomplicated; Z79.01 Long term (current) use of anticoagulants; Z79.51 Long term (current) use of inhaled steroids; Z79.899 Other long term (current) drug therapy ==